=== PATIENT | male | born 1930 | race Caucasian/White ===

== ENCOUNTER 2018-05-24 08:43 | Inpatient (IN) | payer OTHER ==
[2018-05-24] MEDS ORDERED: ASPIRIN 81 MG CHEWABLE TABLETS PO ONE (08:55)
--- NOTE | 2018-05-24 08:59 | PDOC ---
History of Present Illness <Ciara Gtzsy - Last Filed: 05/24/18 10:52> - General History Source: Patient Exam Limitations: No Limitations - History of Present Illness Initial Comments: 05/24/18 09:01 Mr Hernandez is an 88 y/o male with a history of HTN, HLD, CVA, CAD s/p [place] s/p CABG and bilateral carotid endarterectomy presents to the ED due to recurrent falls, who presents to the ER via EMS due to chest pain. CP began at 8 Am, described as sharp, pressure, radiating to left arm, no associated jaw pain Pain was initial 04/09 but now it has improved. chest pain has actually been present for the past week. No shortness of breath. Of note, pt has also had diarrhea and nausea for the past week Has had 3-4 stools/day, watery, non bloody No abdominal pain, intermittent cramping PMH: HTN, HLD, CAD, PSH: CABG, CEA Card: Dr Sood, ECHO scheduled for next week Meds: ALL: NKDA Social: denies alcohol, drug, cigarette use FH: non contributory ROS: GENERAL/CONSTITUTIONAL: No: fever, chills, weakness, loss of appetite. HEAD, EYES, EARS, NOSE AND THROAT: No: change in vision, ear pain, discharge, sore throat, throat swelling. CARDIOVASCULAR: Yes: chest pain No: lightheadedness, palpitations, syncope RESPIRATORY: No: cough, shortness of breath, wheezing, hemoptysis, stridor. GASTROINTESTINAL: No: nausea, vomiting, diarrhea, abdominal cramping, rectal bleeding, constipation. GENITOURINARY: No: dysuria, hematuria, frequency, urgency, flank pain. MUSCULOSKELETAL: No: back pain, neck pain, joint pain, muscle swelling or pain SKIN AND BREASTS: No: lesions, pallor, rash or easy bruising. NEUROLOGIC: No: headache, vertigo, paresthesias, weakness ENDOCRINE: No: unexplained weight gain or loss HEMATOLOGIC/LYMPHATIC: No: anemia, easy bleeding, swelling nodes. PE: GENERAL: The patient is in no acute distress. HEAD: Normal EYES: PERRLA, EOMI, sclera anicteric, conjunctiva clear. ENT: Ears normal, nares patent, oropharynx clear without exudates. Moist mucous membranes. NECK: Normal range of motion, supple without lymphadenopathy, JVD LUNGS: Breath sounds equal, clear to auscultation bilaterally. No wheezes, and no crackles. HEART:Regular rate and rhythm, normal S1 and S2 without murmur, rub or gallop. ABDOMEN: Soft, nontender, normoactive bowel sounds. No guarding, no rebound. EXTREMITIES: Normal range of motion, no edema. NEUROLOGICAL: Cranial nerves II through XII grossly intact. Normal speech. No focal neurological deficits. MUSCULOSKELETAL: Back non-tender to palpation SKIN: Warm, Dry, normal turgor, no rashes or lesions noted. 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) - Suicide/Smoking/Psychosocial Hx Smoking History: Never smoked Have you smoked in the past 12 months: No Hx Alcohol Use: No Drug/Substance Use Hx: No Hx Substance Use Treatment: No <Susanne Snell - Last Filed: 05/24/18 11:22> - Past Medical History Allergies/Adverse Reactions: Allergies Allergy/AdvReac Type Severity Reaction Status Date / Time No Known Allergies Allergy Verified 11/14/14 10:31 Home Medications: Ambulatory Orders Atenolol [Tenormin -] 100 mg PO DAILY 08/24/14 Atorvastatin Ca [Lipitor] 80 mg PO HS 08/24/14 Ranitidine HCl [Zantac] 150 mg PO BID 08/24/14 Acetaminophen [Tylenol .Regular Strength -] 650 mg PO Q6H PRN #30 tablet Aspirin [ASA -] 81 mg PO DAILY tab.chew 11/20/14 Amlodipine Bes/Olmesartan Med [Amlodipine-Olmesartan 10-40 mg] 1 each PO DAILY 05/24/18 *Physical Exam - Vital Signs Last Vital Signs Temp Pulse Resp BP Pulse Ox 97.8 F 66 16 142/85 100 05/24/18 08:45 05/24/18 08:45 05/24/18 08:45 05/24/18 08:45 05/24/18 08:45 <Jo Gtz - Last Filed: 05/24/18 10:52> ED Treatment Course - LABORATORY CBC & Chemistry Diagram: 05/24/18 09:50 05/24/18 09:50 - ADDITIONAL ORDERS Additional order review: Laboratory Results 05/24/18 05/24/18 09:50 09:50 PT with INR 12.20 INR 1.08 Sodium 136 Potassium 4.4 Chloride 100 Carbon Dioxide 27 Anion Gap 9 BUN 34 H Creatinine 1.4 H Creat Clearance w eGFR 47.72 Random Glucose 138 H Calcium 9.1 Magnesium 2.1 Total Bilirubin 0.9 AST 29 ALT 26 Alkaline Phosphatase 105 Creatine Kinase 69 Troponin I < 0.02 B-Natriuretic Peptide 327.4 Total Protein 7.6 Albumin 3.5 Lipase 311 05/24/18 09:50 RBC 4.44 MCV 96.9 H MCHC 34.5 RDW 13.5 MPV 9.3 Neutrophils % 84.4 H D Lymphocytes % 6.9 L D Monocytes % 8.1 Eosinophils % 0.3 D Basophils % 0.3 - Medications Given in the ED: ED Medications Discontinued Medications Generic Name Dose Route Start Last Admin Trade Name Jose PRN Reason Stop Dose Admin Aspirin 162 mg 05/24/18 08:55 05/24/18 09:30 Asa - PO 05/24/18 08:56 162 mg ONCE ONE Administration Nitroglycerin 0.3 mg 05/24/18 09:37 05/24/18 09:25 Nitrostat - SL 05/24/18 09:38 0.3 mg ONCE ONE Administration <Jo Gtz - Last Filed: 05/24/18 10:52> - LABORATORY CBC & Chemistry Diagram: 05/24/18 09:50 05/24/18 09:50 - RADIOLOGY Radiology Studies Ordered: Category Date Time Status CHEST X-RAY PORTABLE* [RAD] Stat Radiology 05/24/18 08:55 Ordered <Susanne Snell - Last Filed: 05/24/18 11:22> Medical Decision Making - Medical Decision Making <Jo Gtz - Last Filed: 05/24/18 10:52> - Medical Decision Making 05/24/18 09:10 Differential includes cardiac ischemia, pe, asthma exacerbation, pneumonia, pneumothorax, pleural effusion, costochondritis, pericarditis, GERD. EKG: Twelve-lead EKG was performed and reviewed by me. There is normal sinus rhythm with a rate of 59 bpm. The axis is normal. The intervals are normal - pr:120ms, QRS:96ms, QTc: 409ms. There are no ST elevations or depressions. T wave inversion III, flattening, aVF 05/24/18 09:26 CXR: nml 05/24/18 09:47 Pt continues to have chest pain now, unchanged Given Aspirin Given SLN given Zofran and Pepcid Will re assess for pain relief 05/24/18 10:22 Laboratory Tests 05/24/18 09:50 WBC 12.4 H Hgb 14.9 Hct 43.0 Plt Count 270 D Neutrophils % 84.4 H D Lymphocytes % 6.9 L D 05/24/18 10:45 Laboratory Tests 09/01/17 05/24/18 08:35 09:50 Sodium 141 136 Potassium 4.3 4.4 Chloride 107 100 Anion Gap 5 L 9 BUN 21 H 34 H Creatinine 1.3 1.4 H Random Glucose 96 138 H Creatine Kinase 69 Troponin I < 0.02 B-Natriuretic Peptide 327.4 Lipase 311 05/24/18 11:[address] Roldan He agrees with admission, requests GI consultation Case reviewed with Dr Jones He will see this patient in consultation Pt is now chest pain free <Susanne Snell - Last Filed: 05/24/18 11:22> *DC/Admit/Observation/Transfer <Jo Gtz - Last Filed: 05/24/18 10:52> - Discharge Dispostion Decision to Admit order: Yes <Susanne Snell - Last Filed: 05/24/18 11:22> Diagnosis at time of Disposition: Chest pain Qualifiers: Chest pain type: unspecified Qualified Code(s): R07.9 - Chest pain, unspecified Diarrhea Qualifiers: Diarrhea type: unspecified type Qualified Code(s): R19.7 - Diarrhea, unspecified - Discharge Dispostion Condition at time of disposition: Stable - Referrals Referrals: Francisco Roldan MD [Primary Care Provider] - - Patient Instructions - Post Discharge Activity
[2018-05-24] MEDS ORDERED: SODIUM CHLORIDE 1,000 ML IV STA (09:36)
[2018-05-24] MEDS ORDERED: ONDANSETRON 4 MG/2 ML VIAL IVPUSH ONE (09:37)
[2018-05-24] MEDS ORDERED: FAMOTIDINE 20 MG/50 ML IVPB 20 MG/50 ML MG IVPB ONE ×2 (09:37→10:15)
[2018-05-24] MEDS ORDERED: NITROGLYCERIN SUBLINGUAL 1/200 0.3 MG BTL SL ONE (09:37)
[2018-05-24] MEDS ORDERED: NITROGLYCERIN SUBLINGUAL 1/150 0.4 MG TAB ONE ×2 (09:42→10:15)
[2018-05-24] MEDS ORDERED: ACETAMINOPHEN 1000 MG/100 ML VIAL (NON FORMULARY) IVPB ONE (10:05)
[2018-05-24] MEDS ORDERED: NITROGLYCERIN SUBLINGUAL 1/150 0.4 MG TAB SL ONE (10:05)
[2018-05-24] MEDS ORDERED: ACETAMINOPHEN INJECTION 100 ML IVPB ONE (10:15)
[2018-05-24 10:16] LABS: BASO % 0.3 % (0-2.0); EOS % 0.3 % (0-4.5); HEMOGLOBIN 14.9 GM/dL (11.7-16.9); LYMPH % 6.9 % (8-40); MCH 33.5 pg (25.7-33.7); MCHC 34.5 g/dl (32.0-35.9); MEAN CELL VOLUME 96.9 fl (80-96); MEAN PLT VOLUME 9.3 fl (7.5-11.1); MONO % 8.1 % (3.8-10.2); NEUT % 84.4 % (42.8-82.8); PLATELET COUNT 270 K/MM3 (134-434); RBC 4.44 M/mm3 (4.00-5.60); RDW 13.5 % (11.9-15.9); WHITE BLOOD COUNT 12.4 K/mm3 (4.0-10.0)
[2018-05-24] MEDS ORDERED: ONDANSETRON 4 MG/2 ML VIAL ONE (10:16)
[2018-05-24 10:35] LABS: INR 1.08 (0.83-1.09); PROTHROMBIN TIME (PATIENT) 12.2 SEC (9.7-13.0)
[2018-05-24 10:44] LABS: ALBUMIN 3.5 g/dl (3.4-5.0); ALK PHOS 105 U/L (45-117); ANION GAP 9 MMOL/L (8-16); BILIRUBIN,TOTAL 0.9 mg/dL (0.2-1); BLOOD UREA NITROGEN 34 mg/dL (7-18); CALCIUM 9.1 mg/dL (8.5-10.1); CHLORIDE 100 mmol/L (98-107); CO2 27 mmol/L (21-32); CREATININE 1.4 mg/dL (0.55-1.3); GLUCOSE,RANDOM 138 mg/dL (74-106); LIPASE 311 U/L (73-393); MAGNESIUM 2.1 mg/dL (1.8-2.4); N-TERMINAL BNP 327.4 pg/ml (5-450); POTASSIUM 4.4 mmol/L (3.5-5.1); SGOT/AST 29 U/L (15-37); SGPT/ALT 26 U/L (13-61); SODIUM 136 mmol/L (136-145); TOT PROT 7.6 g/dl (6.4-8.2)
[2018-05-24] MEDS ORDERED: ASPIRIN 81 MG CHEWABLE TABLETS ONE (11:15)
--- NOTE | 2018-05-24 12:17 | EKG ---
Test Reason : Blood Pressure : / mmHG Vent. Rate : 059 BPM Atrial Rate : 059 BPM P-R Int : 120 ms QRS Dur : 096 ms QT Int : 414 ms P-R-T Axes : 017 050 020 degrees QTc Int : 409 ms SINUS BRADYCARDIA POSSIBLE LEFT ATRIAL ENLARGEMENT BORDERLINE ECG WHEN COMPARED WITH ECG OF 24-AUG-2014 09:42, T WAVE INVERSION NOW EVIDENT IN ANTERIOR LEADS Confirmed by PADDY DE LOS SANTOS MD ([id number]) on 05/24/2018 12:16:54 PM Referred By: Confirmed By:PADDY DE LOS SANTOS MD
--- NOTE | 2018-05-24 13:21 | CON.CARD ---
Consult Consult Specialty:: Cardiology Referred by:: Emergency Medicine Reason for Consultation:: Chest pain - History of Present Illness Chief Complaint: Chest pain History of Present Illness: Mr Hernandez is an 88 y/o male with a history of HTN, HLD, CVA, CAD s/p [place] s/p CABG, diastolic dysfunction and bilateral carotid endarterectomy, CKD last seen by dr. Varela 04/22/2018 presents to the ED for chest pain. CP began at 8 Am , described as sharp, pressure, radiating to left arm, no associated jaw pain Pain was initial 04/09 but now it has improved. Chest pain has actually been present for the past week. No shortness of breath, reports odynophagia with liquids and solids, diarrhea, non bloody, chest pain resolved with SL NTG. PMH: HTN, HLD, CAD, PSH: CABG, CEA Card: Dr Sood, ECHO scheduled for next week Meds: ALL: NKDA Social: denies alcohol, drug, cigarette use FH: non contributory - History Source History Provided By: Patient Limitations to Obtaining History: No Limitations - Past Medical History Cardio/Vascular: Yes: CAD, HTN, Hyperlipdemia Infectious Disease: Yes: Herpes Zoster - Past Surgical History Past Surgical History: Yes: CABG, Carotid Endarterectomy - Alcohol/Substance Use Hx Alcohol Use: No - Smoking History Smoking history: Never smoked Have you smoked in the past 12 months: No - Social History Usual Living Arrangement: Alone ADL: Independent History of Recent Travel: No Home Medications - Allergies Allergies/Adverse Reactions: Allergies Allergy/AdvReac Type Severity Reaction Status Date / Time No Known Allergies Allergy Verified 11/14/14 10:31 - Home Medications Home Medications: Ambulatory Orders Atenolol [Tenormin -] 100 mg PO DAILY 08/24/14 Atorvastatin Ca [Lipitor] 80 mg PO HS 08/24/14 Ranitidine HCl [Zantac] 150 mg PO BID 08/24/14 Acetaminophen [Tylenol .Regular Strength -] 650 mg PO Q6H PRN #30 tablet Aspirin [ASA -] 81 mg PO DAILY tab.chew 11/20/14 Amlodipine Bes/Olmesartan Med [Amlodipine-Olmesartan 10-40 mg] 1 each PO DAILY 05/24/18 Review of Systems - Review of Systems Constitutional: reports: Weakness Eyes: reports: No Symptoms HENT: reports: No Symptoms Neck: reports: No Symptoms Cardiovascular: reports: Chest Pain Respiratory: reports: No Symptoms Gastrointestinal: reports: Dysphagia Genitourinary: reports: No Symptoms Musculoskeletal: reports: No Symptoms Neurological: reports: No Symptoms Endocrine: reports: No Symptoms Hematology/Lymphatic: reports: No Symptoms Psychiatric: reports: No Symptoms Vital Signs: Vital Signs Temperature 97.8 F 05/24/18 08:45 Pulse Rate 70 05/24/18 10:15 Respiratory Rate 16 05/24/18 10:15 Blood Pressure 142/78 05/24/18 10:15 O2 Sat by Pulse Oximetry (%) 95 05/24/18 10:15 Constitutional: Yes: No Distress, Calm, Thin Neck: Yes: Supple Respiratory: Yes: Regular, CTA Bilaterally Gastrointestinal: Yes: Normal Bowel Sounds, Soft Cardiovascular: Yes: Regular Rate and Rhythm JVD: No Carotid Bruit: No Heart Sounds: Yes: S1, S2 Murmur: Yes: Systolic Murmur, Grade 1 Edema: No - Other Data Labs, Other Data: CBC, BMP 05/24/18 09:50 05/24/18 09:50 INR, PTT INR 1.08 (0.83-1.09) 05/24/18 09:50 Troponin, BNP 05/24/18 09:50 Troponin I < 0.02 B-Natriuretic Peptide 327.4 Troponin, BNP 05/24/18 09:50 Troponin I < 0.02 B-Natriuretic Peptide 327.4 NSR nonspec T wave changes Imaging - Results Chest X-ray: Report Reviewed (NAD) Problem List - Problems (1) Atypical chest pain Code(s): R07.89 - OTHER CHEST PAIN (2) S/P CABG (coronary artery bypass graft) Code(s): Z95.1 - PRESENCE OF AORTOCORONARY BYPASS GRAFT (3) History of coronary artery stent placement Code(s): Z95.5 - PRESENCE OF CORONARY ANGIOPLASTY IMPLANT AND GRAFT (4) Coronary artery disease Code(s): I25.10 - ATHSCL HEART DISEASE OF [place] CORONARY ARTERY W/O ANG PCTRS Qualifiers: Coronary Disease-Associated Artery/Lesion type: [place] artery [place] vs. transplanted heart: [place] heart Associated angina: without angina Qualified Code(s): I25.10 - Atherosclerotic heart disease of [place] coronary artery without angina pectoris (5) Hyperlipidemia Code(s): E78.5 - HYPERLIPIDEMIA, UNSPECIFIED Qualifiers: Hyperlipidemia type: pure hypercholesterolemia Qualified Code(s): E78.00 - Pure hypercholesterolemia, unspecified; E78.0 - Pure hypercholesterolemia (6) Hypertensive cardiomyopathy Code(s): I11.9 - HYPERTENSIVE HEART DISEASE WITHOUT HEART FAILURE; I43 - CARDIOMYOPATHY IN DISEASES CLASSIFIED ELSEWHERE Qualifiers: Heart failure presence: without heart failure Qualified Code(s): I11.9 - Hypertensive heart disease without heart failure; I43 - Cardiomyopathy in diseases classified elsewhere (7) Diastolic dysfunction without heart failure Code(s): I51.89 - OTHER ILL-DEFINED HEART DISEASES (8) Odynophagia Code(s): R13.10 - DYSPHAGIA, UNSPECIFIED Assessment/Plan Echo: January 29, 2017 Normal LV size and fxn, mild LAE 4.7 cm, mild-mod MR, mod TR RVSP 38 mmHg P-Myoview: November 21, 2015 No ischemia, LVEF 87% 1. Atypical chest pain with odynophagia, r/o esophageal spasm, achalasia, stricture 2. CAD s/p PCI, CABG, angina pectoris 3. Diastolic dysfunction 4. HTN/HCVD 5. Type 2 DM 6. Hyperlipidemia 7. Cerebeovascular disease 8. Carotid stenosis s/p CEA P:1. Ruling out for [place], barium swallow, GI evaluation 2. Continue Atenolol 100 qd, Lipitor 80 qhs, Zantac 150 bid, ASA 81 qd, Lotrel 10/40 qd 3. Thank you for consultative opportunity
--- NOTE | 2018-05-24 21:06 | HP ---
Admitting History and Physical - Primary Care Physician PCP: Francisco Roldan - Admission Chief Complaint: CP History of Present Illness: Pt with significant Hx/o CAD, [place], CABG, Carotid disease c/o on and off CP for 3 days,worse this AM, radiating to the left arm, not associated with SOB, palpitations, dizziness. Pt also c/o diarrhea for on week, no blood. History Source: Patient - Past Medical History Cardiovascular: Yes: CAD, CHF, HTN, Hyperlipdemia, [place] Renal/: Yes: Renal Failure Infectious Disease: Yes: Herpes Zoster - Past Surgical History Past Surgical History: Yes: CABG, Carotid Endarterectomy - Smoking History Smoking history: Never smoked Have you smoked in the past 12 months: No - Alcohol/Substance Use Hx Alcohol Use: No - Social History ADL: Independent History of Recent Travel: No Home Medications - Allergies Allergies/Adverse Reactions: Allergies Allergy/AdvReac Type Severity Reaction Status Date / Time No Known Allergies Allergy Verified 11/14/14 10:31 - Home Medications Home Medications: Ambulatory Orders Atenolol [Tenormin -] 100 mg PO DAILY 08/24/14 Atorvastatin Ca [Lipitor] 80 mg PO HS 08/24/14 Ranitidine HCl [Zantac] 150 mg PO BID 08/24/14 Acetaminophen [Tylenol .Regular Strength -] 650 mg PO Q6H PRN #30 tablet Aspirin [ASA -] 81 mg PO DAILY tab.chew 11/20/14 Amlodipine Bes/Olmesartan Med [Amlodipine-Olmesartan 10-40 mg] 1 each PO DAILY 05/24/18 Review of Systems - Review of Systems Constitutional: denies: Chills, Fever Eyes: denies: Double Vision, Recent Change in Vision HENT: denies: Difficult Swallowing, Ear Discharge, Ear Pain, Epistaxis, Nasal Congestion, Throat Pain Neck: denies: Pain on Movement, Stiffness Cardiovascular: denies: Chest Pain (now), Edema, Palpitations Respiratory: denies: Cough, SOB, Wheezing Gastrointestinal: reports: Abdominal Pain. denies: Nausea, Vomiting Genitourinary: denies: Burning, Discharge Musculoskeletal: denies: Back Pain, Extremity Pain Integumentary: denies: Bruising, Eczema, Rash Neurological: denies: Change in LOC, Change in Speech, Confusion, Dizziness, Numbness, Tremors, Weakness Endocrine: denies: Excessive Sweating, Intolerance to Cold Hematology/Lymphatic: denies: Easily Bruised, Excessive Bleeding Psychiatric: denies: Anxiety, Depression Physical Examination Vital Signs: Vital Signs Temperature 97.8 F 05/24/18 08:45 Pulse Rate 70 05/24/18 10:15 Respiratory Rate 16 05/24/18 10:15 Blood Pressure 142/78 05/24/18 10:15 O2 Sat by Pulse Oximetry (%) 95 05/24/18 10:15 Constitutional: Yes: No Distress, Calm Eyes: Yes: Conjunctiva Clear, PERRL HENT: No: Epistaxis, Pharyngeal Erythema, Rhinnorhea Neck: Yes: Trachea Midline. No: Lymphadenopathy Cardiovascular: Yes: Regular Rate and Rhythm, S1, S2 Respiratory: Yes: Regular, CTA Bilaterally. No: Rales Gastrointestinal: Yes: Normal Bowel Sounds, Soft. No: Tenderness, Tenderness, Epigastrium, Tenderness, Rebound ...Rectal Exam: Yes: Deferred Musculoskeletal: No: Back Pain, Joint Stiffness, Joint Swelling Extremities: Yes: Amputation (right hand fingers) Edema: No Integumentary: No: Bruising, Rash Neurological: Yes: Alert, Oriented, Other (motor and sensory exxamination is symmetric in UE/ LE/ face) Psychiatric: Yes: Alert, Oriented Labs: CBC, BMP 05/24/18 09:50 05/24/18 09:50 Imaging - Results Chest X-ray: Report Reviewed EKG: Image Reviewed Problem List - Problems (1) Chest pain Code(s): R07.9 - CHEST PAIN, UNSPECIFIED Qualifiers: Chest pain type: unspecified Qualified Code(s): R07.9 - Chest pain, unspecified (2) Diarrhea Code(s): R19.7 - DIARRHEA, UNSPECIFIED Qualifiers: Diarrhea type: unspecified type Qualified Code(s): R19.7 - Diarrhea, unspecified (3) Coronary artery disease Code(s): I25.10 - ATHSCL HEART DISEASE OF [place] CORONARY ARTERY W/O ANG PCTRS Qualifiers: Coronary Disease-Associated Artery/Lesion type: [place] artery [place] vs. transplanted heart: [place] heart Associated angina: without angina Qualified Code(s): I25.10 - Atherosclerotic heart disease of [place] coronary artery without angina pectoris (4) S/P CABG (coronary artery bypass graft) Code(s): Z95.1 - PRESENCE OF AORTOCORONARY BYPASS GRAFT (5) Diastolic dysfunction without heart failure Code(s): I51.89 - OTHER ILL-DEFINED HEART DISEASES (6) Hyperlipidemia Code(s): E78.5 - HYPERLIPIDEMIA, UNSPECIFIED Qualifiers: Hyperlipidemia type: pure hypercholesterolemia Qualified Code(s): E78.00 - Pure hypercholesterolemia, unspecified; E78.0 - Pure hypercholesterolemia (7) Shingles Code(s): B02.9 - ZOSTER WITHOUT COMPLICATIONS (8) Weakness generalized Code(s): R53.1 - WEAKNESS (9) Leukocytosis Code(s): D72.829 - ELEVATED WHITE BLOOD CELL COUNT, UNSPECIFIED Assessment/Plan Admit to monitor bed Serial CE Cardio Consult GI consult To f/u WBC AM labs
[2018-05-24] MEDS: ATORVASTATIN CA 80 MG TABLET (FP) PO SCH (23:00)
[2018-05-24] MEDS: RANITIDINE HCL 150 MG TABLET (FP) PO SCH (23:00)
[2018-05-24] MEDS ORDERED: RANITIDINE HCL 150 MG TABLET (FP) ONE (23:05)
[2018-05-24] MEDS ORDERED: ATORVASTATIN CA 80 MG TABLET (FP) ONE (23:06)
[2018-05-25 04:49] VITALS: BMI 18.1
[2018-05-25 06:56] LABS: HEMATOCRIT 40.5 % (35.4-49); MCH 33.2 pg (25.7-33.7); MCHC 34.6 g/dl (32.0-35.9); MEAN CELL VOLUME 96.1 fl (80-96); MEAN PLT VOLUME 9.4 fl (7.5-11.1); PLATELET COUNT 235 K/MM3 (134-434); RBC 4.22 M/mm3 (4.00-5.60); RDW 13.4 % (11.9-15.9)
[2018-05-25 07:23] LABS: ALBUMIN 3.2 g/dl (3.4-5.0); ALK PHOS 95 U/L (45-117); ANION GAP 8 MMOL/L (8-16); BILIRUBIN,TOTAL 0.8 mg/dL (0.2-1); BLOOD UREA NITROGEN 29 mg/dL (7-18); CALCIUM 8.6 mg/dL (8.5-10.1); CHLORIDE 102 mmol/L (98-107); CO2 24 mmol/L (21-32); CREATININE 1.2 mg/dL (0.55-1.3); GLUCOSE,RANDOM 94 mg/dL (74-106); MAGNESIUM 1.9 mg/dL (1.8-2.4); POTASSIUM 4.2 mmol/L (3.5-5.1); SGOT/AST 28 U/L (15-37); SGPT/ALT 23 U/L (13-61); SODIUM 134 mmol/L (136-145); TOT PROT 6.6 g/dl (6.4-8.2)
[2018-05-25] MEDS ORDERED: PT OWN MED DRAWER 7, Y5N ONE ×2 (08:41→09:18)
[2018-05-25] MEDS: amLODIPine BESYLATE 10 MG TABLET (FP) PO SCH (09:20)
[2018-05-25] MEDS: LISINOPRIL 20 MG TABLET (FP) PO SCH (09:20)
[2018-05-25] MEDS: ATENOLOL 50 MG TABLET (FP) PO SCH (09:20)
[2018-05-25] MEDS: ASPIRIN 81 MG CHEWABLE TABLETS PO SCH (09:20)
[2018-05-25] MEDS: RANITIDINE HCL 150 MG TABLET (FP) PO SCH (09:20)
[2018-05-25] MEDS ORDERED: INSULIN (LEVEMIR) 100 UNITS/ML UNITS SQ ONE (09:40)
[2018-05-25 15:36] LABS: URINE APPEARANCE SLCLOUDY; URINE BILIRUBIN NEGATIVE (<2.0 mg/dL); URINE COLOR YELLOW; URINE GLUCOSE (UA) NEGATIVE (NEGATIVE); URINE KETONE NEGATIVE (NEGATIVE); URINE LEUK ESTERASE NEGATIVE (NEGATIVE); URINE NITRITE NEGATIVE (NEGATIVE); URINE PROTEIN NEGATIVE (NEGATIVE); URINE UROBILINOGEN NEGATIVE mg/dL (0.2-1.0)
--- NOTE | 2018-05-25 18:06 | CONSULT ---
Consult - text type - Consultation Consultation Note: Neurology History of Present Illness Mr Hernandez is an 88 y/o male with a history of HTN, HLD, CVA, CAD s/p [place] s/p CABG and bilateral carotid endarterectomy presents to the ED due to recurrent falls, who presents to the ER via EMS due to chest pain. CP began at 8 Am on morning of admission, described as sharp, pressure, radiating to left arm, no associated jaw pain but has improved. I was consulted regarding confusion. During my evaluation, is awake, alert, cooperative, knows he's in the hospital and calls it [facility]. Knows name of President but had difficulty with date, believed it to be October 2016. Completed CT head which did not show any acute abnormalities. Discussed with primary, Dr. Roldan, not seen in his office in a few years. Baseline is some mild cognitive impairment but otherwise functional. States he's had poor PO intake and mostly consuming soft foods and fruits leading to diahrrea, per patient. Of note had slight white count of 12 but not but on Abx. UA to be sent, CXR negative. 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) - Suicide/Smoking/Psychosocial Hx Smoking History: Never smoked Have you smoked in the past 12 months: No Hx Alcohol Use: No Drug/Substance Use Hx: No Hx Substance Use Treatment: No - Past Medical History Allergies/Adverse Reactions: Allergies Allergy/AdvReac Type Severity Reaction Status Date / Time No Known Allergies Allergy Verified 11/14/14 10:31 Home Medications: Ambulatory Orders Atenolol [Tenormin -] 100 mg PO DAILY 08/24/14 Atorvastatin Ca [Lipitor] 80 mg PO HS 08/24/14 Ranitidine HCl [Zantac] 150 mg PO BID 08/24/14 Acetaminophen [Tylenol .Regular Strength -] 650 mg PO Q6H PRN #30 tablet Aspirin [ASA -] 81 mg PO DAILY tab.chew 11/20/14 Amlodipine Bes/Olmesartan Med [Amlodipine-Olmesartan 10-40 mg] 1 each PO DAILY 05/24/18 ROS: GENERAL/CONSTITUTIONAL: No: fever, chills, weakness, loss of appetite. HEAD, EYES, EARS, NOSE AND THROAT: No: change in vision, ear pain, discharge, sore throat, throat swelling. CARDIOVASCULAR: Yes: chest pain No: lightheadedness, palpitations, syncope RESPIRATORY: No: cough, shortness of breath, wheezing, hemoptysis, stridor. GASTROINTESTINAL: No: nausea, vomiting, diarrhea, abdominal cramping, rectal bleeding, constipation. GENITOURINARY: No: dysuria, hematuria, frequency, urgency, flank pain. MUSCULOSKELETAL: No: back pain, neck pain, joint pain, muscle swelling or pain SKIN AND BREASTS: No: lesions, pallor, rash or easy bruising. NEUROLOGIC: No: headache, vertigo, paresthesias, weakness ENDOCRINE: No: unexplained weight gain or loss HEMATOLOGIC/LYMPHATIC: No: anemia, easy bleeding, swelling nodes. *Physical Exam Vital Signs Period Temp Pulse Resp BP Sys/Tatum Pulse Ox Last 24 Hr 97.5 F-98.3 F 71-82 18-20 117-149/58-89 95-97 Gen: Awake, alert, responds to questions, knows place Card: RRR, nml S1,S2 Resp: Normal symmetric effort, lungs clear to auscultation Abdomen: Soft, nontender, bowel sounds active Musculoskeletal: Adequate range of motion without significant deformity Head atraumatic and normocephalic CN: PERRL, EOMI intact, no apparent facial droop, no abnormalities in facial sensation, palate elevates, uvula and tongue midline Motor: Full strength to confrontation in upper and lower extermities proximally and distally. Age related atrophy Sensory: Intact to Temperature, light touch, and pinprick in all extremities Coordination: Intact on [id number] testing Gait: Deferred Laboratory Results 05/24/18 05/24/18 09:50 09:50 PT with INR 12.20 INR 1.08 Sodium 136 Potassium 4.4 Chloride 100 Carbon Dioxide 27 Anion Gap 9 BUN 34 H Creatinine 1.4 H Creat Clearance w eGFR 47.72 Random Glucose 138 H Calcium 9.1 Magnesium 2.1 Total Bilirubin 0.9 AST 29 ALT 26 Alkaline Phosphatase 105 Creatine Kinase 69 Troponin I < 0.02 B-Natriuretic Peptide 327.4 Total Protein 7.6 Albumin 3.5 Lipase 311 05/24/18 09:50 RBC 4.44 MCV 96.9 H MCHC 34.5 RDW 13.5 MPV 9.3 Neutrophils % 84.4 H D Lymphocytes % 6.9 L D Monocytes % 8.1 Eosinophils % 0.3 D Basophils % 0.3 Medical Decision Making 88 y/o male with a history of HTN, HLD, CVA, CAD s/p [place] s/p CABG and bilateral carotid endarterectomy presents to the ED due to recurrent falls, who presents to the ER via EMS due to chest pain. CP began at 8 Am on morning of admission, described as sharp, pressure, radiating to left arm, no associated jaw pain but has improved. I was consulted regarding confusion. During my evaluation, is awake, alert, cooperative, knows he's in the hospital and calls it [facility]. Knows name of President but had difficulty with date, believed it to be October 2016. Completed CT head which did not show any acute abnormalities. Discussed with primary, Dr. Roldan, not seen in his office in a few years. Baseline is some mild cognitive impairment but otherwise functional. States he' s had poor PO intake and mostly consuming soft foods and fruits leading to diahrrea, per patient. Of note had slight white count of 12 but not but on Abx. UA to be sent, CXR negative. Hold off on further imaging for now. Will check B12 , Folate. Check for infectious etiology, gentle hydration may be of benefit. Increased PO/IV hydration. Reorientation whenever able.
--- NOTE | 2018-05-25 18:30 | PN ---
Progress Note, Physician History of Present Illness: Pt w/o CP now. Pt w/o SOB, palpitations, dizziness. Pt w/o diarrhea today. Pt w/o nausea, vomiting. Pt states that has difficulty swallowing, sometimes coughs when swallows, other times it hurts. Pt is trying to get out of bed on his own. I made pt's nurse aware. Per pt's nurse pt seems anxious at times. Pt's reported to the nurse that pt is somewhat confused. - Current Medication List Current Medications: Active Medications Amlodipine Besylate (Norvasc -) 10 mg PO DAILY [facility] Last Admin: 05/25/18 09:20 Dose: 10 mg Aspirin (Asa -) 81 mg PO DAILY [facility] Last Admin: 05/25/18 09:20 Dose: 81 mg Atenolol (Tenormin -) 100 mg PO DAILY [facility] Last Admin: 05/25/18 09:20 Dose: 100 mg Atorvastatin Calcium (Lipitor -) 80 mg PO HS [facility] Last Admin: 05/24/18 23:00 Dose: 80 mg Lisinopril (Prinivil) 40 mg PO DAILY [facility] Last Admin: 05/25/18 09:20 Dose: 40 mg Ranitidine HCl (Zantac -) 150 mg PO BID [facility] Last Admin: 05/25/18 09:20 Dose: 150 mg - Objective Vital Signs: Vital Signs Temperature 98.2 F 05/25/18 14:00 Pulse Rate 74 05/25/18 14:00 Respiratory Rate 18 05/25/18 14:00 Blood Pressure 117/58 L 05/25/18 14:00 O2 Sat by Pulse Oximetry (%) 97 05/25/18 10:00 Constitutional: Yes: No Distress, Calm (now) Cardiovascular: Yes: Regular Rate and Rhythm, S1, S2 Respiratory: Yes: Regular, CTA Bilaterally. No: Rales Gastrointestinal: Yes: Normal Bowel Sounds, Soft. No: Tenderness Edema: No Neurological: Yes: Alert, Oriented (to person, place) Labs: CBC, BMP 05/25/18 05:30 05/25/18 05:30 INR, PTT INR 1.08 (0.83-1.09) 05/24/18 09:50 Problem List - Problems (1) Chest pain Code(s): R07.9 - CHEST PAIN, UNSPECIFIED Qualifiers: Chest pain type: unspecified Qualified Code(s): R07.9 - Chest pain, unspecified (2) Diarrhea Code(s): R19.7 - DIARRHEA, UNSPECIFIED Qualifiers: Diarrhea type: unspecified type Qualified Code(s): R19.7 - Diarrhea, unspecified (3) Coronary artery disease Code(s): I25.10 - ATHSCL HEART DISEASE OF [place] CORONARY ARTERY W/O ANG PCTRS Qualifiers: Coronary Disease-Associated Artery/Lesion type: [place] artery [place] vs. transplanted heart: [place] heart Associated angina: without angina Qualified Code(s): I25.10 - Atherosclerotic heart disease of [place] coronary artery without angina pectoris (4) S/P CABG (coronary artery bypass graft) Code(s): Z95.1 - PRESENCE OF AORTOCORONARY BYPASS GRAFT (5) Diastolic dysfunction without heart failure Code(s): I51.89 - OTHER ILL-DEFINED HEART DISEASES (6) Hyperlipidemia Code(s): E78.5 - HYPERLIPIDEMIA, UNSPECIFIED Qualifiers: Hyperlipidemia type: pure hypercholesterolemia Qualified Code(s): E78.00 - Pure hypercholesterolemia, unspecified; E78.0 - Pure hypercholesterolemia (7) Shingles Code(s): B02.9 - ZOSTER WITHOUT COMPLICATIONS (8) Weakness generalized Code(s): R53.1 - WEAKNESS (9) Leukocytosis Code(s): D72.829 - ELEVATED WHITE BLOOD CELL COUNT, UNSPECIFIED (10) Anxiety Code(s): F41.9 - ANXIETY DISORDER, UNSPECIFIED (11) Confusion Code(s): R41.0 - DISORIENTATION, UNSPECIFIED (12) Swallowing difficulty Code(s): R13.10 - DYSPHAGIA, UNSPECIFIED Assessment/Plan Admitted to monitor bed Serial CE- to monitor Cardio Consult appreciated. GI consult Swallow evaluation. I ordered Head CT scan to r/o brain pathology. Neuro consult; case was d/w Dr. Zhou, Head CT scan report was reviewed with Dr. Zhou; to monitor pt clinically. Start slow rate IV hydrations- per pt's nurse he removes repeatedly IV line; to encourage PO hydration. Consider Xanax PRN for anxiety. I spoke with pt about risk of fall and the need to call for help every time he is trying to go to the bathroom. I spoke with his nurse about pt's risk of fall; pt to be moved closer to nursing station, to have bed alarm. Consider vest for safety. Time spent for managing pt's care: over 40 minutes. AM labs
--- NOTE | 2018-05-25 19:51 | CON.GI ---
Consult Consult Specialty:: Gastroenterology Referred by:: Dr. Roldan Reason for Consultation:: Diarrhea - History of Present Illness Chief Complaint: Chest pain this AM History of Present Illness: 88M is admitted for evaluation of chest pain. He suffers with chronic heartburn but tells me that his pain was different. He denies dysphagia or early satiety. He describes having diarrhea for several months. It can range from 1-4 bowels movements daily. The stool consistency ranges form stringy thins stools to loose and watery. He believes it may be because he gave up eating fruit and vegetables several months ago because they are either too expensive or too difficult to prepare. He cooks for himself and his . He denies rectal bleeding but senses weight loss that he can't quantitate. He last had a colonoscopy with me in 2009 when a tubular adenoma was removed from the splenic flexure. He had an adenoma removed in 2005 as well when he also was found to have a duodenal ulcer. He takes Ranitidine chronically for this and his acid reflux. I advised followup in 2014 when I last saw him on 10/27/11 but he did not return as he tells me he has gotten too old and weak to have any further endoscopies. He denies a FH of GI cancer. 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 - Past Surgical History Past Surgical History: Yes: Appendectomy, CABG (quadruple 10/05), Carotid Endarterectomy (bilateral), Cataract Removal (bilateral), Colonoscopy, Hernia Repair ([facility]), Upper Endoscopy Additional Surgical History: excision benign cyst right testicle - Alcohol/Substance Use Hx Alcohol Use: Yes (quit 40 years ago) - Smoking History Smoking history: Never smoked Have you smoked in the past 12 months: No - Social History Usual Living Arrangement: With Spouse ADL: Independent 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 Place of : [facility] History of Recent Travel: No Home Medications - Allergies Allergies/Adverse Reactions: Allergies Allergy/AdvReac Type Severity Reaction Status Date / Time No Known Allergies Allergy Verified 11/14/14 10:31 - Home Medications Home Medications: Ambulatory Orders Atenolol [Tenormin -] 100 mg PO DAILY 08/24/14 Atorvastatin Ca [Lipitor] 80 mg PO HS 08/24/14 Ranitidine HCl [Zantac] 150 mg PO BID 08/24/14 Acetaminophen [Tylenol .Regular Strength -] 650 mg PO Q6H PRN #30 tablet Aspirin [ASA -] 81 mg PO DAILY tab.chew 11/20/14 Amlodipine Bes/Olmesartan Med [Amlodipine-Olmesartan 10-40 mg] 1 each PO DAILY 05/24/18 Family Disease History - Family Disease History Family Disease History: Heart Disease: Father ( [place] age 58), Other: Mother ( 80 thoracic aneurysm ), Son ( of congenital abnormality), Daughter (5- healthy ) Review of Systems - Review of Systems Constitutional: reports: Loss of Appetite, Unintentional Wgt. Loss, Weakness Eyes: reports: No Symptoms HENT: reports: No Symptoms Neck: reports: No Symptoms Cardiovascular: reports: Chest Pain Respiratory: reports: Exercise Intolerance Gastrointestinal: reports: Diarrhea Musculoskeletal: reports: Joint Pain Physical Exam-GI Vital Signs: Vital Signs Temperature 98.2 F 05/25/18 14:00 Pulse Rate 74 05/25/18 14:00 Respiratory Rate 18 05/25/18 14:00 Blood Pressure 117/58 L 05/25/18 14:00 O2 Sat by Pulse Oximetry (%) 97 05/25/18 10:00 CBC,CMP WBC 11.0 K/mm3 (4.0-10.0) H 05/25/18 05:30 RBC 4.22 M/mm3 (4.00-5.60) 05/25/18 05:30 Hgb 14.0 GM/dL (11.7-16.9) 05/25/18 05:30 Hct 40.5 % (35.4-49) 05/25/18 05:30 MCV 96.1 fl (80-96) H 05/25/18 05:30 MCH 33.2 pg (25.7-33.7) 05/25/18 05:30 MCHC 34.6 g/dl (32.0-35.9) 05/25/18 05:30 RDW 13.4 % (11.9-15.9) 05/25/18 05:30 Plt Count 235 K/MM3 (134-434) 05/25/18 05:30 MPV 9.4 fl (7.5-11.1) 05/25/18 05:30 Absolute Neuts (auto) 10.5 K/mm3 (1.5-8.0) H 05/24/18 09:50 Neutrophils % 84.4 % (42.8-82.8) H D 05/24/18 09:50 Lymphocytes % 6.9 % (8-40) L D 05/24/18 09:50 Monocytes % 8.1 % (3.8-10.2) 05/24/18 09:50 Eosinophils % 0.3 % (0-4.5) D 05/24/18 09:50 Basophils % 0.3 % (0-2.0) 05/24/18 09:50 Nucleated RBC % 0 % (0-0) 05/24/18 09:50 Sodium 134 mmol/L (136-145) L 05/25/18 05:30 Potassium 4.2 mmol/L (3.5-5.1) 05/25/18 05:30 Chloride 102 mmol/L (98-107) 05/25/18 05:30 Carbon Dioxide 24 mmol/L (21-32) 05/25/18 05:30 Anion Gap 8 MMOL/L (8-16) 05/25/18 05:30 BUN 29 mg/dL (7-18) H 05/25/18 05:30 Creatinine 1.2 mg/dL (0.55-1.3) 05/25/18 05:30 Creat Clearance w eGFR 57.01 (>60) 05/25/18 05:30 Random Glucose 94 mg/dL (74-106) 05/25/18 05:30 Calcium 8.6 mg/dL (8.5-10.1) 05/25/18 05:30 Magnesium 1.9 mg/dL (1.8-2.4) 05/25/18 05:30 Total Bilirubin 0.8 mg/dL (0.2-1) 05/25/18 05:30 AST 28 U/L (15-37) 05/25/18 05:30 ALT 23 U/L (13-61) 05/25/18 05:30 Alkaline Phosphatase 95 U/L (45-117) 05/25/18 05:30 Creatine Kinase 121 IU/L (26-308) 05/25/18 15:15 Troponin I < 0.02 ng/ml (0.00-0.05) 05/25/18 15:15 B-Natriuretic Peptide 327.4 pg/ml (5-450) 05/24/18 09:50 Total Protein 6.6 g/dl (6.4-8.2) 05/25/18 05:30 Albumin 3.2 g/dl (3.4-5.0) L 05/25/18 05:30 Lipase 311 U/L (73-393) 05/24/18 09:50 Current Medications Generic Name Dose Route Start Last Admin Trade Name Darronq PRN Reason Stop Dose Admin Amlodipine Besylate 10 mg 05/25/18 10:00 05/25/18 09:20 Norvasc - PO 10 mg DAILY [facility] Administration Aspirin 81 mg 05/25/18 10:00 05/25/18 09:20 Asa - PO 81 mg DAILY [facility] Administration Atenolol 100 mg 05/25/18 10:00 05/25/18 09:20 Tenormin - PO 100 mg DAILY [facility] Administration Atorvastatin Calcium 80 mg 05/24/18 22:00 05/24/18 23:00 Lipitor - PO 80 mg HS [facility] Administration Lisinopril 40 mg 05/25/18 10:00 05/25/18 09:20 Prinivil PO 40 mg DAILY [facility] Administration Ranitidine HCl 150 mg 05/24/18 22:00 05/25/18 09:20 Zantac - PO 150 mg BID [facility] Administration Constitutional: Yes: No Distress Eyes: Yes: Conjunctiva Clear HENT: Yes: Atraumatic Neck: Yes: Trachea Midline Cardiovascular: Yes: Regular Rate and Rhythm, Other (healed median sternotomy incision) Respiratory: Yes: CTA Bilaterally Gastrointestinal Inspection: Yes: Scars (RIH,LIH and RLQ incisions) ...Auscultate: Yes: Normoactive Bowel Sounds ...Palpate: Yes: Soft, Other (nontender) ...Rectal Exam: Yes: Guaiac Negative (loose , guaiac negative stool 2+ prostate) Extremities: Yes: Other (amputated 2nd and 3rd digits) Edema: No Peripheral Pulses WNL: Yes Psychiatric: Yes: Alert Labs: CBC, BMP 05/25/18 05:30 05/25/18 05:30 INR, PTT INR 1.08 (0.83-1.09) 05/24/18 09:50 Laboratory Tests 05/24/18 05/25/18 09:50 05:30 Sodium 134 L BUN 34 H 29 H Creatinine 1.4 H 1.2 Total Bilirubin 0.8 Albumin 3.2 L Problem List - Problems (1) Diarrhea Assessment/Plan: I will screen stools for pathogens, C diff and WBCs and order an FUA to exclude a postobstructive paradoxical diarrhea. Steven has stated that he does not want a repeat colonoscopy Code(s): R19.7 - DIARRHEA, UNSPECIFIED Qualifiers: Diarrhea type: unspecified type Qualified Code(s): R19.7 - Diarrhea, unspecified (2) History of adenomatous polyp of colon Code(s): Z86.010 - PERSONAL HISTORY OF COLONIC POLYPS (3) Diverticulosis Code(s): K57.90 - DVRTCLOS OF INTEST, PART UNSP, W/O PERF OR ABSCESS W/O BLEED (4) History of peptic ulcer Code(s): Z87.11 - PERSONAL HISTORY OF PEPTIC ULCER DISEASE (5) GERD (gastroesophageal reflux disease) Assessment/Plan: will start PPI Code(s): K21.9 - GASTRO-ESOPHAGEAL REFLUX DISEASE WITHOUT ESOPHAGITIS (6) Chest pain Code(s): R07.9 - CHEST PAIN, UNSPECIFIED Qualifiers: Chest pain type: unspecified Qualified Code(s): R07.9 - Chest pain, unspecified
[2018-05-25] MEDS ORDERED: PANTOPRAZOLE 40 MG TABLET (FP) PO ONE (20:15)
[2018-05-25] MEDS: ATORVASTATIN CA 80 MG TABLET (FP) PO SCH (21:40)
[2018-05-25] MEDS ORDERED: ALPRAZolam 0.25 MG TABLET PO PRN (22:30)
[2018-05-26 06:15] LABS: HEMATOCRIT 37.1 % (35.4-49); HEMOGLOBIN 12.7 GM/dL (11.7-16.9); MCH 32.8 pg (25.7-33.7); MCHC 34.2 g/dl (32.0-35.9); MEAN PLT VOLUME 9.1 fl (7.5-11.1); PLATELET COUNT 219 K/MM3 (134-434); RBC 3.87 M/mm3 (4.00-5.60); RDW 13.5 % (11.9-15.9); WHITE BLOOD COUNT 8.8 K/mm3 (4.0-10.0)
[2018-05-26 07:04] LABS: ALBUMIN 2.7 g/dl (3.4-5.0); ALK PHOS 80 U/L (45-117); ANION GAP 11 MMOL/L (8-16); BILIRUBIN,TOTAL 0.4 mg/dL (0.2-1); BLOOD UREA NITROGEN 29 mg/dL (7-18); CALCIUM 8.6 mg/dL (8.5-10.1); CHLORIDE 106 mmol/L (98-107); CO2 21 mmol/L (21-32); CREATININE 1.1 mg/dL (0.55-1.3); GLUCOSE,RANDOM 83 mg/dL (74-106); POTASSIUM 4.3 mmol/L (3.5-5.1); SGOT/AST 24 U/L (15-37); SGPT/ALT 22 U/L (13-61); SODIUM 138 mmol/L (136-145); TOT PROT 5.6 g/dl (6.4-8.2)
--- NOTE | 2018-05-26 09:23 | PN ---
Progress Note (short form) - Note Progress Note: Neurology History of Present Illness Mr Hernandez is an 88 y/o male with a history of HTN, HLD, CVA, CAD s/p CO s/p CABG and bilateral carotid endarterectomy presents to the ED due to recurrent falls, who presents to the ER via EMS due to chest pain. CP began at 8 Am on morning of admission, described as sharp, pressure, radiating to left arm, no associated jaw pain but has improved. I was consulted regarding confusion. During my evaluation, is awake, alert, cooperative, knows he's in the hospital and calls it [facility]. Knows name of President but had difficulty with date. Completed CT head which did not show any acute abnormalities. Discussed with primary, Dr. Roldan, not seen in his office in a few years. Baseline is some mild cognitive impairment but otherwise functional. States he's had poor PO intake and mostly consuming soft foods and fruits leading to diahrrea, per patient. Of note had slight white count of 12 but not but on Abx. UA negative, CXR negative. No significant events overnight. Mental status appears to be similar this AM. No B12 or Folate deficency seen on labs. Allergies Allergy/AdvReac Type Severity Reaction Status Date / Time No Known Allergies Allergy Verified 11/14/14 10:31 Active Medications Alprazolam (Xanax -) 0.25 mg PO Q12H PRN PRN Reason: ANXIETY Last Admin: 05/25/18 22:54 Dose: 0.25 mg Amlodipine Besylate (Norvasc -) 10 mg PO DAILY [facility] Last Admin: 05/25/18 09:20 Dose: 10 mg Aspirin (Asa -) 81 mg PO DAILY [facility] Last Admin: 05/25/18 09:20 Dose: 81 mg Atenolol (Tenormin -) 100 mg PO DAILY [facility] Last Admin: 05/25/18 09:20 Dose: 100 mg Atorvastatin Calcium (Lipitor -) 80 mg PO HS [facility] Last Admin: 05/25/18 21:40 Dose: 80 mg Lisinopril (Prinivil) 40 mg PO DAILY [facility] Last Admin: 05/25/18 09:20 Dose: 40 mg *Physical Exam Vital Signs Period Temp Pulse Resp BP Sys/Tatum Pulse Ox Last 24 Hr 98.1 F-98.5 F 65-78 18-20 116-119/58-67 97-97 Gen: Awake, alert, responds to questions, knows place Card: RRR, nml S1,S2 Resp: Normal symmetric effort, lungs clear to auscultation Abdomen: Soft, nontender, bowel sounds active Musculoskeletal: Adequate range of motion without significant deformity Head atraumatic and normocephalic CN: PERRL, EOMI intact, no apparent facial droop, no abnormalities in facial sensation, palate elevates, uvula and tongue midline Motor: Full strength to confrontation in upper and lower extermities proximally and distally. Age related atrophy Sensory: Intact to Temperature, light touch, and pinprick in all extremities Coordination: Intact on [id number] testing Gait: Deferred CBCD WBC 8.8 K/mm3 (4.0-10.0) 05/26/18 05:30 RBC 3.87 M/mm3 (4.00-5.60) L 05/26/18 05:30 Hgb 12.7 GM/dL (11.7-16.9) 05/26/18 05:30 Hct 37.1 % (35.4-49) 05/26/18 05:30 MCV 96.0 fl (80-96) 05/26/18 05:30 MCHC 34.2 g/dl (32.0-35.9) 05/26/18 05:30 RDW 13.5 % (11.9-15.9) 05/26/18 05:30 Plt Count 219 K/MM3 (134-434) 05/26/18 05:30 MPV 9.1 fl (7.5-11.1) 05/26/18 05:30 CMP Sodium 138 mmol/L (136-145) 05/26/18 05:30 Potassium 4.3 mmol/L (3.5-5.1) 05/26/18 05:30 Chloride 106 mmol/L (98-107) 05/26/18 05:30 Carbon Dioxide 21 mmol/L (21-32) 05/26/18 05:30 Anion Gap 11 MMOL/L (8-16) 05/26/18 05:30 BUN 29 mg/dL (7-18) H 05/26/18 05:30 Creatinine 1.1 mg/dL (0.55-1.3) 05/26/18 05:30 Creat Clearance w eGFR > 60 (>60) 05/26/18 05:30 Random Glucose 83 mg/dL (74-106) 05/26/18 05:30 Calcium 8.6 mg/dL (8.5-10.1) 05/26/18 05:30 Total Bilirubin 0.4 mg/dL (0.2-1) 05/26/18 05:30 AST 24 U/L (15-37) 05/26/18 05:30 ALT 22 U/L (13-61) 05/26/18 05:30 Alkaline Phosphatase 80 U/L (45-117) 05/26/18 05:30 Total Protein 5.6 g/dl (6.4-8.2) L 05/26/18 05:30 Albumin 2.7 g/dl (3.4-5.0) L 05/26/18 05:30 CARDIAC ENZYMES Creatine Kinase 168 IU/L (26-308) 05/25/18 21:30 Troponin I < 0.02 ng/ml (0.00-0.05) 05/25/18 21:30 Medical Decision Making 88 y/o male with a history of HTN, HLD, CVA, CAD s/p CO s/p CABG and bilateral carotid endarterectomy presents to the ED due to recurrent falls, who presents to the ER via EMS due to chest pain. CP began at 8 Am on morning of admission, described as sharp, pressure, radiating to left arm, no associated jaw pain but has improved. I was consulted regarding confusion. During my evaluation, is awake, alert, cooperative, knows he's in the hospital and calls it [facility]. Knows name of President but had difficulty with date, believed it to be October 2016. Completed CT head which did not show any acute abnormalities. Discussed with primary, Dr. Roldan, not seen in his office in a few years. Baseline is some mild cognitive impairment but otherwise functional. States he' s had poor PO intake and mostly consuming soft foods and fruits leading to diahrrea, per patient. Of note had slight white count of 12 but not but on Abx. UA and CXR negative. WILL order MRI brain. Continue IV/Po hydration. Medical optmization.
[2018-05-26] MEDS: amLODIPine BESYLATE 10 MG TABLET (FP) PO SCH (10:29)
[2018-05-26] MEDS: LISINOPRIL 20 MG TABLET (FP) PO SCH (10:29)
[2018-05-26] MEDS: ASPIRIN 81 MG CHEWABLE TABLETS PO SCH (10:30)
[2018-05-26] MEDS: ATENOLOL 50 MG TABLET (FP) PO SCH (10:30)
--- NOTE | 2018-05-26 10:37 | PN ---
Progress Note, Physician History of Present Illness: Continued odynaphagia, ruled out for NM. - Current Medication List Current Medications: Active Medications Alprazolam (Xanax -) 0.25 mg PO Q12H PRN PRN Reason: ANXIETY Last Admin: 05/25/18 22:54 Dose: 0.25 mg Amlodipine Besylate (Norvasc -) 10 mg PO DAILY [facility] Last Admin: 05/26/18 10:29 Dose: 10 mg Aspirin (Asa -) 81 mg PO DAILY [facility] Last Admin: 05/26/18 10:30 Dose: 81 mg Atenolol (Tenormin -) 100 mg PO DAILY [facility] Last Admin: 05/26/18 10:30 Dose: 100 mg Atorvastatin Calcium (Lipitor -) 80 mg PO HS [facility] Last Admin: 05/25/18 21:40 Dose: 80 mg Lisinopril (Prinivil) 40 mg PO DAILY [facility] Last Admin: 05/26/18 10:29 Dose: 40 mg - Objective Vital Signs: Vital Signs Temperature 98.4 F 05/26/18 06:57 Pulse Rate 68 05/26/18 06:57 Respiratory Rate 18 05/26/18 06:57 Blood Pressure 119/59 L 05/26/18 06:57 O2 Sat by Pulse Oximetry (%) 97 05/25/18 21:00 Constitutional: Yes: No Distress, Calm, Thin Neck: Yes: Supple Cardiovascular: Yes: Regular Rate and Rhythm Respiratory: Yes: Regular, Diminished Gastrointestinal: Yes: Normal Bowel Sounds, Soft Edema: No Labs: CBC, BMP 05/26/18 05:30 05/26/18 05:30 INR, PTT INR 1.08 (0.83-1.09) 05/24/18 09:50 Problem List - Problems (1) Atypical chest pain Code(s): R07.89 - OTHER CHEST PAIN (2) S/P CABG (coronary artery bypass graft) Code(s): Z95.1 - PRESENCE OF AORTOCORONARY BYPASS GRAFT (3) History of coronary artery stent placement Code(s): Z95.5 - PRESENCE OF CORONARY ANGIOPLASTY IMPLANT AND GRAFT (4) Coronary artery disease Code(s): I25.10 - ATHSCL HEART DISEASE OF [place] CORONARY ARTERY W/O ANG PCTRS Qualifiers: Coronary Disease-Associated Artery/Lesion type: [place] artery [place] vs. transplanted heart: [place] heart Associated angina: without angina Qualified Code(s): I25.10 - Atherosclerotic heart disease of [place] coronary artery without angina pectoris (5) Hyperlipidemia Code(s): E78.5 - HYPERLIPIDEMIA, UNSPECIFIED Qualifiers: Hyperlipidemia type: pure hypercholesterolemia Qualified Code(s): E78.00 - Pure hypercholesterolemia, unspecified; E78.0 - Pure hypercholesterolemia (6) Hypertensive cardiomyopathy Code(s): I11.9 - HYPERTENSIVE HEART DISEASE WITHOUT HEART FAILURE; I43 - CARDIOMYOPATHY IN DISEASES CLASSIFIED ELSEWHERE Qualifiers: Heart failure presence: without heart failure Qualified Code(s): I11.9 - Hypertensive heart disease without heart failure; I43 - Cardiomyopathy in diseases classified elsewhere (7) Diastolic dysfunction without heart failure Code(s): I51.89 - OTHER ILL-DEFINED HEART DISEASES (8) Odynophagia Code(s): R13.10 - DYSPHAGIA, UNSPECIFIED Assessment/Plan Echo: January 29, 2017 Normal LV size and fxn, mild LAE 4.7 cm, mild-mod MR, mod TR RVSP 38 mmHg P-Myoview: November 21, 2015 No ischemia, LVEF 87% 1. Atypical chest pain with odynophagia, r/o esophageal spasm, achalasia, stricture 2. CAD s/p PCI, CABG, angina pectoris 3. Diastolic dysfunction 4. HTN/HCVD 5. Type 2 DM 6. Hyperlipidemia 7. Cerebeovascular disease 8. Carotid stenosis s/p CEA P:1. Ruled out for NM, barium swallow, GI evaluation appreciated 2. Continue Atenolol 100 qd, Lipitor 80 qhs, Zantac 150 bid, ASA 81 qd, Lotrel 10/40 qd 3. D/c telemetry
--- NOTE | 2018-05-26 11:44 | PN ---
Progress Note, Physician History of Present Illness: Pt w/o CP now. Pt w/o SOB, palpitations, dizziness. Pt w/o diarrhea, nausea, vomiting. Pt't and dg at bedside; both confirmed that pt is forgetful, agitated at home, more here. - Current Medication List Current Medications: Active Medications Alprazolam (Xanax -) 0.25 mg PO Q12H PRN PRN Reason: ANXIETY Last Admin: 05/25/18 22:54 Dose: 0.25 mg Amlodipine Besylate (Norvasc -) 10 mg PO DAILY [facility] Last Admin: 05/26/18 10:29 Dose: 10 mg Aspirin (Asa -) 81 mg PO DAILY [facility] Last Admin: 05/26/18 10:30 Dose: 81 mg Atenolol (Tenormin -) 100 mg PO DAILY [facility] Last Admin: 05/26/18 10:30 Dose: 100 mg Atorvastatin Calcium (Lipitor -) 80 mg PO HS [facility] Last Admin: 05/25/18 21:40 Dose: 80 mg Lisinopril (Prinivil) 40 mg PO DAILY [facility] Last Admin: 05/26/18 10:29 Dose: 40 mg - Objective Vital Signs: Vital Signs Temperature 98.0 F 05/26/18 10:00 Pulse Rate 85 05/26/18 10:00 Respiratory Rate 20 05/26/18 10:00 Blood Pressure 111/62 05/26/18 10:00 O2 Sat by Pulse Oximetry (%) 95 05/26/18 10:00 Constitutional: Yes: Calm, Other (upset that si weak) Cardiovascular: Yes: Regular Rate and Rhythm, S1, S2 Respiratory: Yes: Regular, CTA Bilaterally. No: Rales Gastrointestinal: Yes: Normal Bowel Sounds, Soft. No: Tenderness Edema: No Neurological: Yes: Alert, Oriented (to place, family) Labs: CBC, BMP 05/26/18 05:30 05/26/18 05:30 INR, PTT INR 1.08 (0.83-1.09) 05/24/18 09:50 Problem List - Problems (1) Chest pain Code(s): R07.9 - CHEST PAIN, UNSPECIFIED Qualifiers: Chest pain type: unspecified Qualified Code(s): R07.9 - Chest pain, unspecified (2) Diarrhea Code(s): R19.7 - DIARRHEA, UNSPECIFIED Qualifiers: Diarrhea type: unspecified type Qualified Code(s): R19.7 - Diarrhea, unspecified (3) Coronary artery disease Code(s): I25.10 - ATHSCL HEART DISEASE OF [place] CORONARY ARTERY W/O ANG PCTRS Qualifiers: Coronary Disease-Associated Artery/Lesion type: [place] artery [place] vs. transplanted heart: [place] heart Associated angina: without angina Qualified Code(s): I25.10 - Atherosclerotic heart disease of [place] coronary artery without angina pectoris (4) S/P CABG (coronary artery bypass graft) Code(s): Z95.1 - PRESENCE OF AORTOCORONARY BYPASS GRAFT (5) Diastolic dysfunction without heart failure Code(s): I51.89 - OTHER ILL-DEFINED HEART DISEASES (6) Hyperlipidemia Code(s): E78.5 - HYPERLIPIDEMIA, UNSPECIFIED Qualifiers: Hyperlipidemia type: pure hypercholesterolemia Qualified Code(s): E78.00 - Pure hypercholesterolemia, unspecified; E78.0 - Pure hypercholesterolemia (7) Shingles Code(s): B02.9 - ZOSTER WITHOUT COMPLICATIONS (8) Weakness generalized Code(s): R53.1 - WEAKNESS (9) Leukocytosis Code(s): D72.829 - ELEVATED WHITE BLOOD CELL COUNT, UNSPECIFIED (10) Anxiety Code(s): F41.9 - ANXIETY DISORDER, UNSPECIFIED (11) Confusion Code(s): R41.0 - DISORIENTATION, UNSPECIFIED (12) Swallowing difficulty Code(s): R13.10 - DYSPHAGIA, UNSPECIFIED (13) Dementia Code(s): F03.90 - UNSPECIFIED DEMENTIA WITHOUT BEHAVIORAL DISTURBANCE Assessment/Plan Admitted to monitor bed Serial CE- to monitor Cardio, GI Consult are appreciated. Case was d/w Dr. Jones. Swallow evaluation. Pt for Matthew MRI I d/w pt's and dg at bedside, pt's care and evaluation paln was reviewed; all questions were answered. AM labs Case was d/w pt's nurse
--- NOTE | 2018-05-26 12:30 | CONSULT ---
Admitting History and Physical - Primary Care Physician PCP: Francisco Roldan - Admission History of Present Illness: 88 y/o male with a history of HTN, HLD, CVA, CAD s/p MN s/p CABG and bilateral carotid endarterectomy presents to the ED due to recurrent falls, who presents to the ER via EMS due to chest pain Pt c/o in throat when he swallows. Selected Entries 05/25/18 05/25/18 05/25/18 03:32 04:29 10:00 Breakfast 100% Lunch Supper Temperature 98.3 F 97.5 F L 98.1 F 05/25/18 05/25/18 05/25/18 12:04 14:00 15:24 Breakfast 100% Lunch 50% Supper Temperature 98.2 F 05/25/18 05/25/18 05/26/18 17:30 19:55 06:57 Breakfast Lunch Supper 50% Temperature 98.5 F 98.4 F 05/26/18 10:00 Breakfast 50% Lunch Supper Temperature 98.0 F Laboratory Tests 05/24/18 05/25/18 05/26/18 09:50 05:30 05:30 WBC 12.4 H 11.0 H 8.8 On reg diet/thin liquid This is my first consult with this pt. History Source: Family Member Limitations to Obtaining History: Clinical Condition - Past Medical History EDGE INKER HEELS: Yes: TIA (1995) Cardiovascular: Yes: CAD (quadruple CABG 10/05 ), CHF, HTN, Hyperlipdemia, MN, Other (bilateral endarterectomies for carotid stenosis) Gastrointestinal: Yes: Diverticulosis, GERD, Peptic Ulcer Disease, Other (colon adenomas) Renal/: Yes: Renal Failure Infectious Disease: Yes: Herpes Zoster - Past Surgical History Past Surgical History: Yes: Appendectomy, CABG (quadruple 10/05), Carotid Endarterectomy (bilateral), Cataract Removal (bilateral), Colonoscopy, Hernia Repair (RIH and LIH), Upper Endoscopy - Smoking History Smoking history: Never smoked Have you smoked in the past 12 months: No - Alcohol/Substance Use Hx Alcohol Use: No - Social History ADL: Independent 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 History of Recent Travel: No History - Admission Reason For Visit: DIARRHEA, CHEST PAIN - Diagnostics X-ray: Report Reviewed - General Mental Status: Alert and Oriented (grossly), Awake and Alert, Able to Follow Commands, Forgetful Attention: Intact Ability to Follow Directions: Fair Head/Neck Control: Fair - Hearing Hearing: Functional Speech Evaluation - Communication Primary Language: SWEDISH Communication: Yes: Simple Responses Oral Expression Ability: Yes: Mild Impairment, Moderate Impairment - Speech Production Intelligibility: Yes: Mildly Impaired, Moderately Impaired - Speech Characteristics Voice Loudness: Mildly Soft/Quiet, Moderately Soft/Quiet Voice Pitch: Yes: Normal Voice Phonatory-based Quality: Yes: Dysphonia Speech Clarity: < 75% Nasal Resonance: Normal Articulation: Yes: Precise - Language/Auditory Comprehension Follows: Yes: 1 Stage Simple Commands - Swallow Evaluation/Bedside Assessment Current Nutritional Intake: Regular, Thin Liquids, Other (fed by family. Quite weak.) Dentition: Yes: Adequate Facial Symmetry at Rest: Symmetrical Against Resistance Opening: Normal Against Resistance Closing: Normal Pucker Lips: Normal Smile: Normal Lingual Movement: Normal, Symmetric Lingual Speed of Movement: Normal Lingual Movement Strgth Against Opposition: Reduced Lingual Movement Characteristics: Normal Laryngeal Movement: Labored,delay initiation Rate of Intake: WFL Bolus Size: Small Labial Seal: WFL Chewing: WFL Oral Prep Time: WFL A-P Transit: WFL Pocketing: None Timing of Swallow: Delayed Odynophagia: Pharyngeal Coughing/Throat Clear: No Change in Voice: No Recommendations - Speech Evaluation, Impression/Plan Impression: Pt c/o in throat when he swallows. Pt seems to grimace and reports pain when drinking with vocal wetness. r/o aspiration? CXR (-).Rare cough while eating.No thrush identified. - Dysphagia Impressions/Plan Dysphagia Impressions: Ongoing Evaluation *Silent aspiration: cannot be R/O at bedside Recommendations: ENT Consult (if odynophagia persists), MBS w Esophagus
--- NOTE | 2018-05-26 12:37 | PN ---
GI Progress Note Subjective: GI NOte: NO BMs so far, Await FUA to exclude fecal impaction or partial obstruction. Discussed situation with and daughter at the bedside - Objective Vital Signs: Vital Signs Temperature 98.0 F 05/26/18 10:00 Pulse Rate 85 05/26/18 10:00 Respiratory Rate 20 05/26/18 10:00 Blood Pressure 111/62 05/26/18 10:00 O2 Sat by Pulse Oximetry (%) 95 05/26/18 10:00 Constitutional: Calm ...Auscultate: Yes: Normoactive Bowel Sounds ...Palpate: Yes: Soft, Other (nontender) Labs: CBC, BMP 05/26/18 05:30 05/26/18 05:30 INR, PTT INR 1.08 (0.83-1.09) 05/24/18 09:50 Problem List - Problems (1) Diarrhea Assessment/Plan: Await screening of stools for pathogens, C diff and WBCs and FUA to exclude a postobstructive paradoxical diarrhea. Code(s): R19.7 - DIARRHEA, UNSPECIFIED Qualifiers: Diarrhea type: unspecified type Qualified Code(s): R19.7 - Diarrhea, unspecified (2) History of adenomatous polyp of colon Code(s): Z86.010 - PERSONAL HISTORY OF COLONIC POLYPS (3) Diverticulosis Code(s): K57.90 - DVRTCLOS OF INTEST, PART UNSP, W/O PERF OR ABSCESS W/O BLEED (4) History of peptic ulcer Code(s): Z87.11 - PERSONAL HISTORY OF PEPTIC ULCER DISEASE (5) GERD (gastroesophageal reflux disease) Code(s): K21.9 - GASTRO-ESOPHAGEAL REFLUX DISEASE WITHOUT ESOPHAGITIS (6) Chest pain Code(s): R07.9 - CHEST PAIN, UNSPECIFIED Qualifiers: Chest pain type: unspecified Qualified Code(s): R07.9 - Chest pain, unspecified
--- NOTE | 2018-05-26 17:54 | CON.PSY ---
Psychiatry Consult Chief Complaint: 88 year old male with a history of Dementia Vasular type. admittede from home, reports of agitationj. mostly sundowning. Symptoms: reports: Memory Impairment, Irritability, Inability to Control Temper - Previous Psychiatric Treatment Outpatient: None Inpatient: None - Previous Substance Abuse Treatment Outpatient: None Inpatient: None - Current Medications Current Medications: Active Medications Amlodipine Besylate (Norvasc -) 10 mg PO DAILY [facility] Last Admin: 05/26/18 10:29 Dose: 10 mg Aspirin (Asa -) 81 mg PO DAILY [facility] Last Admin: 05/26/18 10:30 Dose: 81 mg Atenolol (Tenormin -) 100 mg PO DAILY [facility] Last Admin: 05/26/18 10:30 Dose: 100 mg Atorvastatin Calcium (Lipitor -) 80 mg PO [facility] Last Admin: 05/25/18 21:40 Dose: 80 mg Lisinopril (Prinivil) 40 mg PO DAILY [facility] Last Admin: 05/26/18 10:29 Dose: 40 mg - Allergies Allergies: Allergies Allergy/AdvReac Type Severity Reaction Status Date / Time No Known Allergies Allergy Verified 11/14/14 10:31 - Current Living Status Usual Living Arrangement: With Significant Other - Current Mental Status Evaluation Appearance: Disheveled Attitude: Guarded - Affect Affect: Constrictive Appropriateness: Not Appropriate - Mood Mood: Irritable - Speech/Language Expressive: Delayed - Psychomotor Activity Psychomotor Activity: Hyperactive - Thought Process Thought Process: Circumstantial - Thought Content Hallucinations: Absent Delusions: Absent - Self Perception Self Perception: No Impairment - Cognition Attention: Diminished Memory, Immediate Recall: Impaired Memory, Short Term: 2/3 Memory, Remote with Promptin/3 - Concentration Serial Sevens Intact: No Simple Calculations Intact: No - Abstraction Proverb Interpretation: Impaired Judgement: Moderately Impaired - Insight Insight: Impaired - Impulse Control Impulse Control: Moderately Impaired - Suicidal Ideation Suicidal Ideation: No - Homicidal Ideation Homicidal Ideation: No Assessment/Plan 1) d/c Xanax prn. can give ativan 1mg im berfore Ct scan. @) zyprexa 5mg po hs for agitaion.
[2018-05-26] MEDS: ATORVASTATIN CA 80 MG TABLET (FP) PO SCH (20:59)
[2018-05-26] MEDS: OLANZapine 5 MG TABLET PO SCH (20:59)
[2018-05-27 06:22] LABS: HEMATOCRIT 38.2 % (35.4-49); HEMOGLOBIN 13.2 GM/dL (11.7-16.9); MCH 33.5 pg (25.7-33.7); MCHC 34.6 g/dl (32.0-35.9); MEAN CELL VOLUME 96.7 fl (80-96); MEAN PLT VOLUME 9.3 fl (7.5-11.1); PLATELET COUNT 243 K/MM3 (134-434); RBC 3.95 M/mm3 (4.00-5.60); RDW 13.4 % (11.9-15.9); WHITE BLOOD COUNT 10.5 K/mm3 (4.0-10.0)
[2018-05-27 06:54] LABS: ANION GAP 12 MMOL/L (8-16); BLOOD UREA NITROGEN 22 mg/dL (7-18); CALCIUM 8.8 mg/dL (8.5-10.1); CHLORIDE 107 mmol/L (98-107); CO2 23 mmol/L (21-32); CREATININE 1.1 mg/dL (0.55-1.3); GLUCOSE,RANDOM 88 mg/dL (74-106); POTASSIUM 4.5 mmol/L (3.5-5.1); SODIUM 141 mmol/L (136-145)
--- NOTE | 2018-05-27 09:11 | PN ---
Progress Note (short form) - Note Progress Note: Neurology History of Present Illness Mr Hernandez is an 88 y/o male with a history of HTN, HLD, CVA, CAD s/p [place] s/p CABG and bilateral carotid endarterectomy presents to the ED due to recurrent falls, who presents to the ER via EMS due to chest pain. CP began at 8 Am on morning of admission, described as sharp, pressure, radiating to left arm, no associated jaw pain but has improved. I was consulted regarding confusion. During my evaluation, is awake, alert, cooperative, knows he's in the hospital and calls it [facility]. Knows name of President but had difficulty with date. Completed CT head which did not show any acute abnormalities. Discussed with primary, Dr. Roldan, not seen in his office in a few years. Baseline is some mild cognitive impairment but otherwise functional. States he's had poor PO intake and mostly consuming soft foods and fruits leading to diahrrea, per patient. Of note had slight white count of 12 but not but on Abx. UA negative, CXR negative. No significant events overnight. Mental status appears to be similar this AM. No B12 or Folate deficency seen on labs. Per notes, family reported ongoing cognitive decline, worse here. MRI brain ordered not completed , discussed with nurse hopefully will be done today. WBC downtrending, BUN/Cr improving. Psych note reviewed, Zyprexa started. Allergies Allergy/AdvReac Type Severity Reaction Status Date / Time No Known Allergies Allergy Verified 11/14/14 10:31 Active Medications Amlodipine Besylate (Norvasc -) 10 mg PO DAILY [facility] Last Admin: 05/26/18 10:29 Dose: 10 mg Aspirin (Asa -) 81 mg PO DAILY [facility] Last Admin: 05/26/18 10:30 Dose: 81 mg Atenolol (Tenormin -) 100 mg PO DAILY [facility] Last Admin: 05/26/18 10:30 Dose: 100 mg Atorvastatin Calcium (Lipitor -) 80 mg PO HS [facility] Last Admin: 05/26/18 20:59 Dose: 80 mg Lisinopril (Prinivil) 40 mg PO DAILY [facility] Last Admin: 05/26/18 10:29 Dose: 40 mg Olanzapine (Zyprexa -) 5 mg PO HS [facility] Last Admin: 05/26/18 20:59 Dose: 5 mg *Physical Exam Vital Signs Temperature 98 F 05/27/18 02:09 Pulse Rate 61 05/27/18 06:02 Respiratory Rate 20 05/27/18 06:02 Blood Pressure 102/53 L 05/27/18 06:02 O2 Sat by Pulse Oximetry (%) 95 05/26/18 21:00 Gen: Awake, alert, responds to questions, knows place Card: RRR, nml S1,S2 Resp: Normal symmetric effort, lungs clear to auscultation Abdomen: Soft, nontender, bowel sounds active Musculoskeletal: Adequate range of motion without significant deformity Head atraumatic and normocephalic CN: PERRL, EOMI intact, no apparent facial droop, no abnormalities in facial sensation, palate elevates, uvula and tongue midline Motor: Full strength to confrontation in upper and lower extermities proximally and distally. Age related atrophy Sensory: Intact to Temperature, light touch, and pinprick in all extremities Coordination: Intact on [id number] testing Gait: Deferred CBCD WBC 10.5 K/mm3 (4.0-10.0) H 05/27/18 05:30 RBC 3.95 M/mm3 (4.00-5.60) L 05/27/18 05:30 Hgb 13.2 GM/dL (11.7-16.9) 05/27/18 05:30 Hct 38.2 % (35.4-49) 05/27/18 05:30 MCV 96.7 fl (80-96) H 05/27/18 05:30 MCHC 34.6 g/dl (32.0-35.9) 05/27/18 05:30 RDW 13.4 % (11.9-15.9) 05/27/18 05:30 Plt Count 243 K/MM3 (134-434) 05/27/18 05:30 MPV 9.3 fl (7.5-11.1) 05/27/18 05:30 CMP Sodium 141 mmol/L (136-145) 05/27/18 05:30 Potassium 4.5 mmol/L (3.5-5.1) 05/27/18 05:30 Chloride 107 mmol/L (98-107) 05/27/18 05:30 Carbon Dioxide 23 mmol/L (21-32) 05/27/18 05:30 Anion Gap 12 MMOL/L (8-16) 05/27/18 05:30 BUN 22 mg/dL (7-18) H 05/27/18 05:30 Creatinine 1.1 mg/dL (0.55-1.3) 05/27/18 05:30 Creat Clearance w eGFR > 60 (>60) 05/27/18 05:30 Random Glucose 88 mg/dL (74-106) 05/27/18 05:30 Calcium 8.8 mg/dL (8.5-10.1) 05/27/18 05:30 Total Bilirubin 0.4 mg/dL (0.2-1) 05/26/18 05:30 AST 24 U/L (15-37) 05/26/18 05:30 ALT 22 U/L (13-61) 05/26/18 05:30 Alkaline Phosphatase 80 U/L (45-117) 05/26/18 05:30 Total Protein 5.6 g/dl (6.4-8.2) L 05/26/18 05:30 Albumin 2.7 g/dl (3.4-5.0) L 05/26/18 05:30 CARDIAC ENZYMES Creatine Kinase 103 IU/L (26-308) 05/26/18 21:45 Troponin I < 0.02 ng/ml (0.00-0.05) 05/26/18 21:45 Medical Decision Making 88 y/o male with a history of HTN, HLD, CVA, CAD s/p TN s/p CABG and bilateral carotid endarterectomy presents to the ED due to recurrent falls, who presents to the ER via EMS due to chest pain. CP began at 8 Am on morning of admission, described as sharp, pressure, radiating to left arm, no associated jaw pain but has improved. I was consulted regarding confusion. During my evaluation, is awake, alert, cooperative, knows he's in the hospital and calls it [facility]. Knows name of President but had difficulty with date, believed it to be October 2016. Completed CT head which did not show any acute abnormalities. Discussed with primary, Dr. Roldan, not seen in his office in a few years. Baseline is some mild cognitive impairment but reportedly with progressive cogitive decline. States he's had poor PO intake and mostly consuming soft foods and fruits leading to diahrrea, per patient. Of note had slight white count of 12, which has improved. UA and CXR negative. BUN/Cr improved, continued hydration. MRI brain pending. Psych note reviewed. No objection to Zyprexa.
[2018-05-27] MEDS: ASPIRIN 81 MG CHEWABLE TABLETS PO SCH (09:33)
[2018-05-27] MEDS: LISINOPRIL 20 MG TABLET (FP) PO SCH (09:33)
[2018-05-27] MEDS: ATENOLOL 50 MG TABLET (FP) PO SCH (09:33)
[2018-05-27] MEDS: amLODIPine BESYLATE 10 MG TABLET (FP) PO SCH (09:33)
--- NOTE | 2018-05-27 11:16 | PN ---
Progress Note, Physician History of Present Illness: Atypical chest pain resolved, awaiting brain MRI. - Current Medication List Current Medications: Active Medications Amlodipine Besylate (Norvasc -) 10 mg PO DAILY [facility] Last Admin: 05/27/18 09:33 Dose: 10 mg Aspirin (Asa -) 81 mg PO DAILY [facility] Last Admin: 05/27/18 09:33 Dose: 81 mg Atenolol (Tenormin -) 100 mg PO DAILY [facility] Last Admin: 05/27/18 09:33 Dose: 100 mg Atorvastatin Calcium (Lipitor -) 80 mg PO HS [facility] Last Admin: 05/26/18 20:59 Dose: 80 mg Lisinopril (Prinivil) 40 mg PO DAILY [facility] Last Admin: 05/27/18 09:33 Dose: 40 mg Olanzapine (Zyprexa -) 5 mg PO HS [facility] Last Admin: 05/26/18 20:59 Dose: 5 mg - Objective Vital Signs: Vital Signs Temperature 98 F 05/27/18 02:09 Pulse Rate 61 05/27/18 06:02 Respiratory Rate 20 05/27/18 06:02 Blood Pressure 102/53 L 05/27/18 06:02 O2 Sat by Pulse Oximetry (%) 95 05/26/18 21:00 Constitutional: Yes: No Distress, Calm, Thin Neck: Yes: Supple Cardiovascular: Yes: Regular Rate and Rhythm Respiratory: Yes: Regular, CTA Bilaterally Gastrointestinal: Yes: Normal Bowel Sounds, Soft Edema: No Labs: CBC, BMP 05/27/18 05:30 05/27/18 05:30 INR, PTT INR 1.08 (0.83-1.09) 05/24/18 09:50 - ....Imaging EKG: Report Reviewed (Tele: NSR) Problem List - Problems (1) Atypical chest pain Code(s): R07.89 - OTHER CHEST PAIN (2) S/P CABG (coronary artery bypass graft) Code(s): Z95.1 - PRESENCE OF AORTOCORONARY BYPASS GRAFT (3) History of coronary artery stent placement Code(s): Z95.5 - PRESENCE OF CORONARY ANGIOPLASTY IMPLANT AND GRAFT (4) Coronary artery disease Code(s): I25.10 - ATHSCL HEART DISEASE OF [place] CORONARY ARTERY W/O ANG PCTRS Qualifiers: Coronary Disease-Associated Artery/Lesion type: tribe artery [place] vs. transplanted heart: tribe heart Associated angina: without angina Qualified Code(s): I25.10 - Atherosclerotic heart disease of tribe coronary artery without angina pectoris (5) Hyperlipidemia Code(s): E78.5 - HYPERLIPIDEMIA, UNSPECIFIED Qualifiers: Hyperlipidemia type: pure hypercholesterolemia Qualified Code(s): E78.00 - Pure hypercholesterolemia, unspecified; E78.0 - Pure hypercholesterolemia (6) Hypertensive cardiomyopathy Code(s): I11.9 - HYPERTENSIVE HEART DISEASE WITHOUT HEART FAILURE; I43 - CARDIOMYOPATHY IN DISEASES CLASSIFIED ELSEWHERE Qualifiers: Heart failure presence: without heart failure Qualified Code(s): I11.9 - Hypertensive heart disease without heart failure; I43 - Cardiomyopathy in diseases classified elsewhere (7) Diastolic dysfunction without heart failure Code(s): I51.89 - OTHER ILL-DEFINED HEART DISEASES Assessment/Plan Echo: January 29, 2017 Normal LV size and fxn, mild LAE 4.7 cm, mild-mod MR, mod TR RVSP 38 mmHg P-Myoview: November 21, 2015 No ischemia, LVEF 87% 1. Atypical chest pain resolved 2. CAD s/p PCI, CABG, angina pectoris 3. Diastolic dysfunction 4. HTN/HCVD 5. Type 2 DM 6. Hyperlipidemia 7. Cerebeovascular disease 8. Carotid stenosis s/p CEA P:1. Ruled out for MA, GI evaluation appreciated 2. Continue Atenolol 100 qd, Lipitor 80 qhs, Zantac 150 bid, ASA 81 qd, Lotrel 10/40 qd 3. D/c telemetry 4. F/u brain MRI
--- NOTE | 2018-05-27 11:16 | PN ---
Progress Note, BUDGET EXAMINER - Note Progress Note: Selected Entries 05/26/18 05/26/18 05/26/18 06:57 10:00 12:59 Breakfast 50% 50% Lunch 50% Supper Temperature 98.4 F 98.0 F 05/26/18 05/26/18 05/26/18 14:40 17:15 19:58 Breakfast Lunch Supper 100% Temperature 98.2 F 98.8 F 05/26/18 05/27/18 21:00 02:09 Breakfast Lunch Supper Temperature 98.7 F 98 F Laboratory Tests 05/26/18 05/27/18 05:30 05:30 WBC 8.8 10.5 H Tolerating diet.
[2018-05-27] MEDS ORDERED: LORazepam 2 MG/ML SDV VIAL IM ONE ×2 (11:30→15:00)
--- NOTE | 2018-05-27 16:11 | RAPID ---
<Jojo Banuelos - Last Filed: 05/27/18 18:04> Physical Examination Vital Signs: Vital Signs Temperature 98 F 05/27/18 10:00 Pulse Rate 68 05/27/18 10:00 Respiratory Rate 18 05/27/18 10:00 Blood Pressure 100/60 05/27/18 10:00 O2 Sat by Pulse Oximetry (%) 95 05/27/18 09:00 Labs: CBC, BMP 05/27/18 05:30 05/27/18 05:30 Rapid Response - Rapid Response Assessment: Rapid response called at 3:54pm. Primary team arrived. Patient had an unwitnessed fall along the hallway of the radiology department. As per nursing, patient crawled off the siderail of the stretcher and fell. Nurse heard a loud sound, found patient on the floor and immediately called rapid response. The medical team helped the patient back up to the bed. General: Patient is awake, alert, not in distress VS: BP 133/[id number] 94% Head: +abrasion at the frontal area Neuro exam: oriented to place, patient is able to converse with MD when asked questions When asked why he was trying to climbed off the bed, pt responded he wanted to go back to his room Sensation intact Motor - subtle weakness of the right leg (chronic), full strength in all other extremities A: head trauma s/p fall P: Head CT scan without contrast done C-spine CT without contrast done Post-fall protocol ordered Neuro checks q2x12h, then q4 Proper wound care for abrasion Fall precaution. <Naren Fox - Last Filed: 05/29/18 14:30> Rapid Response - Rapid Response Assessment: Agree with above findings and plan of care. I was present through the entire rapid response. C- collar was placed pending CT brain/C-spine results, which was later discontinued. total critical care time spent at bedside 35 min.
--- NOTE | 2018-05-27 16:15 | FALL ---
Fall Exam - Event Witnessed fall: No Location of Fall: Hallway Fall from: Stretcher - Pre-Fall Mental Status: Alert, Cooperative Current Medications: Current Medications Generic Name Dose Route Start Last Admin Trade Name Jose PRN Reason Stop Dose Admin Amlodipine Besylate 10 mg 05/25/18 10:00 05/27/18 09:33 Norvasc - PO 10 mg DAILY [facility] Administration Aspirin 81 mg 05/25/18 10:00 05/27/18 09:33 Asa - PO 81 mg DAILY [facility] Administration Atenolol 100 mg 05/25/18 10:00 05/27/18 09:33 Tenormin - PO 100 mg DAILY [facility] Administration Atorvastatin Calcium 80 mg 05/24/18 22:00 05/26/18 20:59 Lipitor - PO 80 mg HS [facility] Administration Lisinopril 40 mg 05/25/18 10:00 05/27/18 09:33 Prinivil PO 40 mg DAILY [facility] Administration Olanzapine 5 mg 05/26/18 22:00 05/26/18 20:59 Zyprexa - PO 5 mg HS [facility] Administration - Post-Fall Patient Outcome: Abrasion/Bruise Exam Findings: General: Patient is awake, alert, cooperative, not in distress. VS: BP 133/[address] 94%. Head: +abrasion at the frontal area. oriented to place, patient is able to converse with MD when asked questions. When asked why he was trying to climbed off the bed, pt responded he wanted to go back to his room. Sensation intact. Motor - subtle weakness of the right leg (chronic) , full strength in all other extremities Treatment: None Vital Signs: Vital Signs Temperature 98 F 05/27/18 10:00 Pulse Rate 68 05/27/18 10:00 Respiratory Rate 18 05/27/18 10:00 Blood Pressure 100/60 05/27/18 10:00 O2 Sat by Pulse Oximetry (%) 95 05/27/18 09:00 LOC Post-Fall: Awake, Alert, Oriented Identify factors for HIGH RISK for Head Injury: Known to have hit head
--- NOTE | 2018-05-27 19:46 | PN ---
Progress Note, Physician History of Present Illness: Event were noticed (per pt's nurse: pt at radiology department for brain MRI, agitated and not able to tolerate the procedure, received 1 mg Ativan; patient still agitated and not able to tolerate the MRI, received 1 mg of Ativan; patient still agitated and not able to tolerate the MRI; MRI was cancelled and patient was placed on stretcher; while waiting to be transported to the 4-th floor patient tried to get out of the stretcher and fell to the floor; patient hit his head). Fall protocol was initiated (head and spine CT scans are negative for acute disease). Pt w/o RODRIGUEZ, back pain, shoulder pain, hip pain, extremities pain, motor weakness , sensory deficit. Pt w/o CP now. Pt w/o SOB, palpitations, dizziness. Pt w/o nausea, vomiting, abd pain. Pt is trying to stand up and get out of wheelchair frequently - Current Medication List Current Medications: Active Medications Amlodipine Besylate (Norvasc -) 10 mg PO DAILY [facility] Last Admin: 05/27/18 09:33 Dose: 10 mg Aspirin (Asa -) 81 mg PO DAILY [facility] Last Admin: 05/27/18 09:33 Dose: 81 mg Atenolol (Tenormin -) 100 mg PO DAILY [facility] Last Admin: 05/27/18 09:33 Dose: 100 mg Atorvastatin Calcium (Lipitor -) 80 mg PO [facility] Last Admin: 05/26/18 20:59 Dose: 80 mg Lisinopril (Prinivil) 40 mg PO DAILY [facility] Last Admin: 05/27/18 09:33 Dose: 40 mg Olanzapine (Zyprexa -) 5 mg PO [facility] Last Admin: 05/26/18 20:59 Dose: 5 mg - Objective Vital Signs: Vital Signs Temperature 98 F 05/27/18 16:03 Pulse Rate 72 05/27/18 16:03 Respiratory Rate 18 05/27/18 16:03 Blood Pressure 104/60 05/27/18 16:03 O2 Sat by Pulse Oximetry (%) 95 05/27/18 09:00 Constitutional: Yes: Well Nourished, No Distress Cardiovascular: Yes: Regular Rate and Rhythm, S1, S2 Respiratory: Yes: Regular, CTA Bilaterally. No: Rales Gastrointestinal: Yes: Normal Bowel Sounds, Soft. No: Tenderness Edema: No Integumentary: Yes: Other (1 inch abrassion on the forehead, no bleeding) Neurological: Yes: Alert, Oriented, Other (motor and sensory examination is symmetric in UE, LE, face) Labs: CBC, BMP 05/27/18 05:30 05/27/18 05:30 INR, PTT INR 1.08 (0.83-1.09) 05/24/18 09:50 Problem List - Problems (1) Chest pain Code(s): R07.9 - CHEST PAIN, UNSPECIFIED Qualifiers: Chest pain type: unspecified Qualified Code(s): R07.9 - Chest pain, unspecified (2) Diarrhea Code(s): R19.7 - DIARRHEA, UNSPECIFIED Qualifiers: Diarrhea type: unspecified type Qualified Code(s): R19.7 - Diarrhea, unspecified (3) Coronary artery disease Code(s): I25.10 - ATHSCL HEART DISEASE OF [place] CORONARY ARTERY W/O ANG PCTRS Qualifiers: Coronary Disease-Associated Artery/Lesion type: [place] artery [place] vs. transplanted heart: [place] heart Associated angina: without angina Qualified Code(s): I25.10 - Atherosclerotic heart disease of [place] coronary artery without angina pectoris (4) S/P CABG (coronary artery bypass graft) Code(s): Z95.1 - PRESENCE OF AORTOCORONARY BYPASS GRAFT (5) Diastolic dysfunction without heart failure Code(s): I51.89 - OTHER ILL-DEFINED HEART DISEASES (6) Hyperlipidemia Code(s): E78.5 - HYPERLIPIDEMIA, UNSPECIFIED Qualifiers: Hyperlipidemia type: pure hypercholesterolemia Qualified Code(s): E78.00 - Pure hypercholesterolemia, unspecified; E78.0 - Pure hypercholesterolemia (7) Shingles Code(s): B02.9 - ZOSTER WITHOUT COMPLICATIONS (8) Weakness generalized Code(s): R53.1 - WEAKNESS (9) Leukocytosis Code(s): D72.829 - ELEVATED WHITE BLOOD CELL COUNT, UNSPECIFIED (10) Anxiety Code(s): F41.9 - ANXIETY DISORDER, UNSPECIFIED (11) Confusion Code(s): R41.0 - DISORIENTATION, UNSPECIFIED (12) Swallowing difficulty Code(s): R13.10 - DYSPHAGIA, UNSPECIFIED (13) Fall Code(s): W19.XXXA - UNSPECIFIED FALL, INITIAL ENCOUNTER (14) Head trauma Code(s): S09.90XA - UNSPECIFIED INJURY OF HEAD, INITIAL ENCOUNTER Assessment/Plan Fall protocol 1:1 observation (Vest restrain until 1:1 is started) Repeat Head CT scan tomorrow To f/u with Psychiatry, Neurology. 05/24/2018 pt was admitted to monitor bed Serial CE- to monitor Cardio, GI, Neuro, Swallow, Psychiatry Consult are appreciated. AM labs
[2018-05-27] MEDS: OLANZapine 5 MG TABLET PO SCH (21:00)
[2018-05-27] MEDS: ATORVASTATIN CA 80 MG TABLET (FP) PO SCH (21:00)
[2018-05-28 07:13] LABS: HEMATOCRIT 41.3 % (35.4-49); HEMOGLOBIN 13.9 GM/dL (11.7-16.9); MCH 32.7 pg (25.7-33.7); MCHC 33.6 g/dl (32.0-35.9); MEAN CELL VOLUME 97.3 fl (80-96); MEAN PLT VOLUME 9.1 fl (7.5-11.1); PLATELET COUNT 220 K/MM3 (134-434); RBC 4.25 M/mm3 (4.00-5.60); RDW 13.1 % (11.9-15.9); WHITE BLOOD COUNT 11.3 K/mm3 (4.0-10.0)
[2018-05-28 08:18] LABS: ALK PHOS 97 U/L (45-117); ANION GAP 5 MMOL/L (8-16); BILIRUBIN,TOTAL 0.5 mg/dL (0.2-1); BLOOD UREA NITROGEN 25 mg/dL (7-18); CHLORIDE 103 mmol/L (98-107); CO2 29 mmol/L (21-32); CREATININE 1.1 mg/dL (0.55-1.3); GLUCOSE,RANDOM 108 mg/dL (74-106); POTASSIUM 4.3 mmol/L (3.5-5.1); SGOT/AST 34 U/L (15-37); SGPT/ALT 28 U/L (13-61); SODIUM 137 mmol/L (136-145); TOT PROT 6.5 g/dl (6.4-8.2)
--- NOTE | 2018-05-28 09:21 | PN ---
Progress Note (short form) - Note Progress Note: Neurology History of Present Illness Mr Hernandez is an 88 y/o male with a history of HTN, HLD, CVA, CAD s/p PA s/p CABG and bilateral carotid endarterectomy presents to the ED due to recurrent falls, who presents to the ER via EMS due to chest pain. CP began at 8 Am on morning of admission, described as sharp, pressure, radiating to left arm, no associated jaw pain but has improved. I was consulted regarding confusion. During my evaluation, is awake, alert, cooperative, knows he's in the hospital and calls it [facility]. Knows name of President but had difficulty with date. Completed CT head which did not show any acute abnormalities. Discussed with primary, Dr. Roldan, not seen in his office in a few years. Baseline is some mild cognitive impairment but otherwise functional. States he's had poor PO intake and mostly consuming soft foods and fruits leading to diahrrea, per patient. Of note had slight white count of 12 but not but on Abx. UA negative, CXR negative. WBC count downtrending. No B12 or Folate deficency seen on labs. Per notes, family reported ongoing cognitive decline, worse here. MRI brain ordered and completed, awaiting official read. Has been started on Zyprexa by Psych. Overnight, notes indicate fall. CT head repeated and no acute changes. CT C spine also reviewed and DDD noted but without fractures or dislocation. Somnolent but arousable this AM, remains cooperative but fatigued. Allergies Allergy/AdvReac Type Severity Reaction Status Date / Time No Known Allergies Allergy Verified 11/14/14 10:31 Active Medications Amlodipine Besylate (Norvasc -) 10 mg PO DAILY [facility] Last Admin: 05/27/18 09:33 Dose: 10 mg Aspirin (Asa -) 81 mg PO DAILY [facility] Last Admin: 05/27/18 09:33 Dose: 81 mg Atenolol (Tenormin -) 100 mg PO DAILY [facility] Last Admin: 05/27/18 09:33 Dose: 100 mg Atorvastatin Calcium (Lipitor -) 80 mg PO HS [facility] Last Admin: 05/27/18 21:00 Dose: 80 mg Lisinopril (Prinivil) 40 mg PO DAILY [facility] Last Admin: 05/27/18 09:33 Dose: 40 mg Olanzapine (Zyprexa -) 5 mg PO HS [facility] Last Admin: 05/27/18 21:00 Dose: 5 mg *Physical Exam Vital Signs Temperature 98.2 F 05/28/18 05:31 Pulse Rate 88 05/28/18 05:31 Respiratory Rate 20 05/28/18 05:31 Blood Pressure 140/68 05/28/18 05:31 O2 Sat by Pulse Oximetry (%) 96 05/27/18 20:20 Gen: Awake, alert, responds to questions, knows place Card: RRR, nml S1,S2 Resp: Normal symmetric effort, lungs clear to auscultation Abdomen: Soft, nontender, bowel sounds active Musculoskeletal: Adequate range of motion without significant deformity Head atraumatic and normocephalic CN: PERRL, EOMI intact, no apparent facial droop, no abnormalities in facial sensation, palate elevates, uvula and tongue midline Motor: Full strength to confrontation in upper and lower extermities proximally and distally. Age related atrophy Sensory: Intact to Temperature, light touch, and pinprick in all extremities Coordination: Intact on [id number]-[id number] testing Gait: Deferred CBCD WBC 11.3 K/mm3 (4.0-10.0) H 05/28/18 05:30 RBC 4.25 M/mm3 (4.00-5.60) 05/28/18 05:30 Hgb 13.9 GM/dL (11.7-16.9) 05/28/18 05:30 Hct 41.3 % (35.4-49) 05/28/18 05:30 MCV 97.3 fl (80-96) H 05/28/18 05:30 MCHC 33.6 g/dl (32.0-35.9) 05/28/18 05:30 RDW 13.1 % (11.9-15.9) 05/28/18 05:30 Plt Count 220 K/MM3 (134-434) 05/28/18 05:30 MPV 9.1 fl (7.5-11.1) 05/28/18 05:30 CMP Sodium 137 mmol/L (136-145) 05/28/18 05:30 Potassium 4.3 mmol/L (3.5-5.1) 05/28/18 05:30 Chloride 103 mmol/L (98-107) 05/28/18 05:30 Carbon Dioxide 29 mmol/L (21-32) 05/28/18 05:30 Anion Gap 5 MMOL/L (8-16) L 05/28/18 05:30 BUN 25 mg/dL (7-18) H 05/28/18 05:30 Creatinine 1.1 mg/dL (0.55-1.3) 05/28/18 05:30 Creat Clearance w eGFR > 60 (>60) 05/28/18 05:30 Random Glucose 108 mg/dL (74-106) H 05/28/18 05:30 Calcium 9.0 mg/dL (8.5-10.1) 05/28/18 05:30 Total Bilirubin 0.5 mg/dL (0.2-1) 05/28/18 05:30 AST 34 U/L (15-37) 05/28/18 05:30 ALT 28 U/L (13-61) 05/28/18 05:30 Alkaline Phosphatase 97 U/L (45-117) 05/28/18 05:30 Total Protein 6.5 g/dl (6.4-8.2) 05/28/18 05:30 Albumin 3.0 g/dl (3.4-5.0) L 05/28/18 05:30 CARDIAC ENZYMES Creatine Kinase 103 IU/L (26-308) 05/26/18 21:45 Troponin I < 0.02 ng/ml (0.00-0.05) 05/26/18 21:45 Medical Decision Making 88 y/o male with a history of HTN, HLD, CVA, CAD s/p PA s/p CABG and bilateral carotid endarterectomy presents to the ED due to recurrent falls, who presents to the ER via EMS due to chest pain. CP began at 8 Am on morning of admission, described as sharp, pressure, radiating to left arm, no associated jaw pain but has improved. I was consulted regarding confusion. During my evaluation, is awake, alert, cooperative, knows he's in the hospital and calls it [facility]. Knows name of President but had difficulty with date, believed it to be October 2016. Completed CT head which did not show any acute abnormalities. Discussed with primary, Dr. Roldan, not seen in his office in a few years. Baseline is some mild cognitive impairment but reportedly with progressive cogitive decline. Has been started on Zyprexa by Psych. Overnight, notes indicate fall. CT head repeated and no acute changes. CT C spine also reviewed and DDD noted but without fractures or dislocation. Awaiting MRI report, on my prelim review, no CVA or acute changes noted. Do see significant atrophy consistent with chronic process with likely superimposed acute decline. Will add Aricept 5mg to regiment to see if provides any benefit, more so to prevent further decline. Maintain adequate hydration and PO intake. 1:1 at bedside, fall precautions discussed. Psych follow up if behavorial disturbance.
[2018-05-28] MEDS: ASPIRIN 81 MG CHEWABLE TABLETS PO SCH (10:36)
[2018-05-28] MEDS: DONEPEZIL HCL 5 MG TABLET (FP) PO SCH (10:40)
[2018-05-28] MEDS: ATENOLOL 50 MG TABLET (FP) PO SCH (10:54)
[2018-05-28] MEDS: amLODIPine BESYLATE 10 MG TABLET (FP) PO SCH (10:54)
[2018-05-28] MEDS: LISINOPRIL 20 MG TABLET (FP) PO SCH (10:54)
--- NOTE | 2018-05-28 10:57 | PN ---
Progress Note, Physician History of Present Illness: Atypical chest pain resolved, brain MRI showed no acute stroke, sustained fall off stretcher yesterday, imaging unrevealing. - Current Medication List Current Medications: Active Medications Amlodipine Besylate (Norvasc -) 10 mg PO DAILY [facility] Last Admin: 05/27/18 09:33 Dose: 10 mg Aspirin (Asa -) 81 mg PO DAILY [facility] Last Admin: 05/28/18 10:36 Dose: 81 mg Atenolol (Tenormin -) 100 mg PO DAILY [facility] Last Admin: 05/27/18 09:33 Dose: 100 mg Atorvastatin Calcium (Lipitor -) 80 mg PO HS [facility] Last Admin: 05/27/18 21:00 Dose: 80 mg Donepezil HCl (Aricept -) 5 mg PO DAILY [facility] Last Admin: 05/28/18 10:40 Dose: 5 mg Lisinopril (Prinivil) 40 mg PO DAILY [facility] Last Admin: 05/27/18 09:33 Dose: 40 mg Olanzapine (Zyprexa -) 5 mg PO [facility] Last Admin: 05/27/18 21:00 Dose: 5 mg - Objective Vital Signs: Vital Signs Temperature 98.2 F 05/28/18 05:31 Pulse Rate 88 05/28/18 05:31 Respiratory Rate 20 05/28/18 05:31 Blood Pressure 140/68 05/28/18 05:31 O2 Sat by Pulse Oximetry (%) 96 05/27/18 20:20 Constitutional: Yes: No Distress, Calm, Thin Neck: Yes: Supple Cardiovascular: Yes: Regular Rate and Rhythm Respiratory: Yes: Regular, Diminished Gastrointestinal: Yes: Normal Bowel Sounds, Soft Edema: No Labs: CBC, BMP 05/28/18 05:30 05/28/18 05:30 INR, PTT INR 1.08 (0.83-1.09) 05/24/18 09:50 Problem List - Problems (1) Atypical chest pain Code(s): R07.89 - OTHER CHEST PAIN (2) S/P CABG (coronary artery bypass graft) Code(s): Z95.1 - PRESENCE OF AORTOCORONARY BYPASS GRAFT (3) History of coronary artery stent placement Code(s): Z95.5 - PRESENCE OF CORONARY ANGIOPLASTY IMPLANT AND GRAFT (4) Coronary artery disease Code(s): I25.10 - ATHSCL HEART DISEASE OF [place] CORONARY ARTERY W/O ANG PCTRS Qualifiers: Coronary Disease-Associated Artery/Lesion type: [place] artery [place] vs. transplanted heart: [place] heart Associated angina: without angina Qualified Code(s): I25.10 - Atherosclerotic heart disease of [place] coronary artery without angina pectoris (5) Hyperlipidemia Code(s): E78.5 - HYPERLIPIDEMIA, UNSPECIFIED Qualifiers: Hyperlipidemia type: pure hypercholesterolemia Qualified Code(s): E78.00 - Pure hypercholesterolemia, unspecified; E78.0 - Pure hypercholesterolemia (6) Hypertensive cardiomyopathy Code(s): I11.9 - HYPERTENSIVE HEART DISEASE WITHOUT HEART FAILURE; I43 - CARDIOMYOPATHY IN DISEASES CLASSIFIED ELSEWHERE Qualifiers: Heart failure presence: without heart failure Qualified Code(s): I11.9 - Hypertensive heart disease without heart failure; I43 - Cardiomyopathy in diseases classified elsewhere (7) Diastolic dysfunction without heart failure Code(s): I51.89 - OTHER ILL-DEFINED HEART DISEASES Assessment/Plan Echo: January 29, 2017 Normal LV size and fxn, mild LAE 4.7 cm, mild-mod MR, mod TR RVSP 38 mmHg P-Myoview: November 21, 2015 No ischemia, LVEF 87% 1. Atypical chest pain resolved 2. CAD s/p PCI, CABG, angina pectoris 3. Diastolic dysfunction 4. HTN/HCVD 5. Type 2 DM 6. Hyperlipidemia 7. Cerebrovascular disease 8. Carotid stenosis s/p CEA 9. Dementia P:1. Ruled out for CA, GI evaluation appreciated 2. Continue Atenolol 100 qd, Lipitor 80 qhs, Zantac 150 bid, ASA 81 qd, Lotrel 10/40 qd 3. D/c telemetry 4. Neuro input appreciated, fall precautions
--- NOTE | 2018-05-28 11:04 | PN ---
Progress Note, Physician History of Present Illness: Pt on 1:1 observation Pt w/o RODRIGUEZ, back pain, shoulder pain, hip pain, extremities pain, motor weakness , sensory deficit. Pt w/o CP now. Pt w/o cg, SOB, palpitations, dizziness. Pt w/o nausea, vomiting, abd pain. Pt is noticed coughing - Current Medication List Current Medications: Active Medications Amlodipine Besylate (Norvasc -) 10 mg PO DAILY [facility] Last Admin: 05/28/18 10:54 Dose: 10 mg Aspirin (Asa -) 81 mg PO DAILY [facility] Last Admin: 05/28/18 10:36 Dose: 81 mg Atenolol (Tenormin -) 100 mg PO DAILY [facility] Last Admin: 05/28/18 10:54 Dose: 100 mg Atorvastatin Calcium (Lipitor -) 80 mg PO [facility] Last Admin: 05/27/18 21:00 Dose: 80 mg Donepezil HCl (Aricept -) 5 mg PO DAILY [facility] Last Admin: 05/28/18 10:40 Dose: 5 mg Lisinopril (Prinivil) 40 mg PO DAILY [facility] Last Admin: 05/28/18 10:54 Dose: 40 mg Olanzapine (Zyprexa -) 5 mg PO [facility] Last Admin: 05/27/18 21:00 Dose: 5 mg - Objective Vital Signs: Vital Signs Temperature 98.2 F 05/28/18 05:31 Pulse Rate 88 05/28/18 05:31 Respiratory Rate 20 05/28/18 05:31 Blood Pressure 140/68 05/28/18 05:31 O2 Sat by Pulse Oximetry (%) 96 05/27/18 20:20 Constitutional: Yes: No Distress, Calm Cardiovascular: Yes: Regular Rate and Rhythm, S1, S2 Respiratory: Yes: Regular, Rhonchi (at Right bases), Other (coarse) Gastrointestinal: Yes: Normal Bowel Sounds, Soft. No: Tenderness Edema: No Neurological: Yes: Alert, Oriented (to place) Labs: CBC, BMP 05/28/18 05:30 05/28/18 05:30 INR, PTT INR 1.08 (0.83-1.09) 05/24/18 09:50 Problem List - Problems (1) Chest pain Code(s): R07.9 - CHEST PAIN, UNSPECIFIED Qualifiers: Chest pain type: unspecified Qualified Code(s): R07.9 - Chest pain, unspecified (2) Diarrhea Code(s): R19.7 - DIARRHEA, UNSPECIFIED Qualifiers: Diarrhea type: unspecified type Qualified Code(s): R19.7 - Diarrhea, unspecified (3) Coronary artery disease Code(s): I25.10 - ATHSCL HEART DISEASE OF [place] CORONARY ARTERY W/O ANG PCTRS Qualifiers: Coronary Disease-Associated Artery/Lesion type: [place] artery [place] vs. transplanted heart: [place] heart Associated angina: without angina Qualified Code(s): I25.10 - Atherosclerotic heart disease of [place] coronary artery without angina pectoris (4) S/P CABG (coronary artery bypass graft) Code(s): Z95.1 - PRESENCE OF AORTOCORONARY BYPASS GRAFT (5) Diastolic dysfunction without heart failure Code(s): I51.89 - OTHER ILL-DEFINED HEART DISEASES (6) Hyperlipidemia Code(s): E78.5 - HYPERLIPIDEMIA, UNSPECIFIED Qualifiers: Hyperlipidemia type: pure hypercholesterolemia Qualified Code(s): E78.00 - Pure hypercholesterolemia, unspecified; E78.0 - Pure hypercholesterolemia (7) Shingles Code(s): B02.9 - ZOSTER WITHOUT COMPLICATIONS (8) Weakness generalized Code(s): R53.1 - WEAKNESS (9) Leukocytosis Code(s): D72.829 - ELEVATED WHITE BLOOD CELL COUNT, UNSPECIFIED (10) Anxiety Code(s): F41.9 - ANXIETY DISORDER, UNSPECIFIED (11) Confusion Code(s): R41.0 - DISORIENTATION, UNSPECIFIED (12) Swallowing difficulty Code(s): R13.10 - DYSPHAGIA, UNSPECIFIED (13) Fall Code(s): W19.XXXA - UNSPECIFIED FALL, INITIAL ENCOUNTER (14) Head trauma Code(s): S09.90XA - UNSPECIFIED INJURY OF HEAD, INITIAL ENCOUNTER Assessment/Plan Fall protocol 1:1 observation (Vest restrain until 1:1 is started) Repeat Head CT scan today To f/u with Psychiatry, Neurology. 05/24/2018 pt was admitted to monitor bed Serial CE- to monitor Cardio, GI, Neuro, Swallow, Psychiatry Consult are appreciated. AM labs
--- NOTE | 2018-05-28 16:13 | PN ---
GI Progress Note Subjective: GI NOte: No diarrhea since admission, in fact no BMs. He denies N/V, bloating or pain and has been eating well. - Objective Vital Signs: Vital Signs Temperature 97.4 F L 05/28/18 14:03 Pulse Rate 68 05/28/18 14:03 Respiratory Rate 18 05/28/18 14:03 Blood Pressure 138/66 05/28/18 14:03 O2 Sat by Pulse Oximetry (%) 96 05/28/18 09:00 CBC,CMP WBC 11.3 K/mm3 (4.0-10.0) H 05/28/18 05:30 RBC 4.25 M/mm3 (4.00-5.60) 05/28/18 05:30 Hgb 13.9 GM/dL (11.7-16.9) 05/28/18 05:30 Hct 41.3 % (35.4-49) 05/28/18 05:30 MCV 97.3 fl (80-96) H 05/28/18 05:30 MCH 32.7 pg (25.7-33.7) 05/28/18 05:30 MCHC 33.6 g/dl (32.0-35.9) 05/28/18 05:30 RDW 13.1 % (11.9-15.9) 05/28/18 05:30 Plt Count 220 K/MM3 (134-434) 05/28/18 05:30 MPV 9.1 fl (7.5-11.1) 05/28/18 05:30 Absolute Neuts (auto) 10.5 K/mm3 (1.5-8.0) H 05/24/18 09:50 Neutrophils % 84.4 % (42.8-82.8) H D 05/24/18 09:50 Lymphocytes % 6.9 % (8-40) L D 05/24/18 09:50 Monocytes % 8.1 % (3.8-10.2) 05/24/18 09:50 Eosinophils % 0.3 % (0-4.5) D 05/24/18 09:50 Basophils % 0.3 % (0-2.0) 05/24/18 09:50 Nucleated RBC % 0 % (0-0) 05/24/18 09:50 Sodium 137 mmol/L (136-145) 05/28/18 05:30 Potassium 4.3 mmol/L (3.5-5.1) 05/28/18 05:30 Chloride 103 mmol/L (98-107) 05/28/18 05:30 Carbon Dioxide 29 mmol/L (21-32) 05/28/18 05:30 Anion Gap 5 MMOL/L (8-16) L 05/28/18 05:30 BUN 25 mg/dL (7-18) H 05/28/18 05:30 Creatinine 1.1 mg/dL (0.55-1.3) 05/28/18 05:30 Creat Clearance w eGFR > 60 (>60) 05/28/18 05:30 Random Glucose 108 mg/dL (74-106) H 05/28/18 05:30 Calcium 9.0 mg/dL (8.5-10.1) 05/28/18 05:30 Magnesium 1.9 mg/dL (1.8-2.4) 05/25/18 05:30 Total Bilirubin 0.5 mg/dL (0.2-1) 05/28/18 05:30 AST 34 U/L (15-37) 05/28/18 05:30 ALT 28 U/L (13-61) 05/28/18 05:30 Alkaline Phosphatase 97 U/L (45-117) 05/28/18 05:30 Creatine Kinase 103 IU/L (26-308) 05/26/18 21:45 Creatine Kinase Index 3.5 % (0.0-5.0) 05/25/18 21:30 CK-MB (CK-2) 6.0 ng/mL (0.5-3.6) H 05/25/18 21:30 Troponin I < 0.02 ng/ml (0.00-0.05) 05/26/18 21:45 C-Reactive Protein 1.4 MG/DL (0.00-0.3) H 05/26/18 05:30 B-Natriuretic Peptide 327.4 pg/ml (5-450) 05/24/18 09:50 Total Protein 6.5 g/dl (6.4-8.2) 05/28/18 05:30 Albumin 3.0 g/dl (3.4-5.0) L 05/28/18 05:30 Lipase 311 U/L (73-393) 05/24/18 09:50 Vitamin B12 1434 pg/ml (193-986) H 05/25/18 21:30 Serum Folate 19 ng/mL (3.1-17.5) H 05/25/18 21:30 TSH 1.44 uIU/ml (0.358-3.74) D 05/26/18 05:30 Free T4 1.22 ng/dl (0.76-1.16) H 05/26/18 05:30 Constitutional: No Distress ...Auscultate: Yes: Normoactive Bowel Sounds ...Palpate: Yes: Soft, Other (nontender) ...Percussion: Yes: Tympanitic Labs: CBC, BMP 05/28/18 05:30 05/28/18 05:30 INR, PTT INR 1.08 (0.83-1.09) 05/24/18 09:50 Problem List - Problems (1) Diarrhea Assessment/Plan: The diarrhea apperas to be paradoxical and Steven is actually constipated . Will give Miralax. Code(s): R19.7 - DIARRHEA, UNSPECIFIED Qualifiers: Diarrhea type: unspecified type Qualified Code(s): R19.7 - Diarrhea, unspecified (2) History of adenomatous polyp of colon Code(s): Z86.010 - PERSONAL HISTORY OF COLONIC POLYPS (3) Diverticulosis Code(s): K57.90 - DVRTCLOS OF INTEST, PART UNSP, W/O PERF OR ABSCESS W/O BLEED (4) History of peptic ulcer Code(s): Z87.11 - PERSONAL HISTORY OF PEPTIC ULCER DISEASE (5) GERD (gastroesophageal reflux disease) Code(s): K21.9 - GASTRO-ESOPHAGEAL REFLUX DISEASE WITHOUT ESOPHAGITIS (6) Chest pain Code(s): R07.9 - CHEST PAIN, UNSPECIFIED Qualifiers: Chest pain type: unspecified Qualified Code(s): R07.9 - Chest pain, unspecified
[2018-05-28] MEDS ORDERED: FLU VACCINE QUAD 60 MCG/0.5 ML (MDV 18-19) IM ONE (17:18)
[2018-05-28] MEDS: POLYETHYLENE GLYCOL 3350 119 GM BTL PO SCH (21:03)
[2018-05-28] MEDS: ATORVASTATIN CA 80 MG TABLET (FP) PO SCH (21:03)
[2018-05-28] MEDS: OLANZapine 5 MG TABLET PO SCH (21:03)
[2018-05-29] MEDS: POLYETHYLENE GLYCOL 3350 119 GM BTL PO SCH ×2 (05:41→13:49)
[2018-05-29 08:21] LABS: HEMATOCRIT 38.2 % (35.4-49); HEMOGLOBIN 12.9 GM/dL (11.7-16.9); MCHC 33.8 g/dl (32.0-35.9); MEAN CELL VOLUME 97.7 fl (80-96); MEAN PLT VOLUME 9.2 fl (7.5-11.1); PLATELET COUNT 232 K/MM3 (134-434); RBC 3.91 M/mm3 (4.00-5.60); WHITE BLOOD COUNT 10.3 K/mm3 (4.0-10.0)
[2018-05-29 08:55] LABS: ANION GAP 8 MMOL/L (8-16); BLOOD UREA NITROGEN 28 mg/dL (7-18); CALCIUM 9.5 mg/dL (8.5-10.1); CHLORIDE 103 mmol/L (98-107); CO2 28 mmol/L (21-32); CREATININE 1.5 mg/dL (0.55-1.3); GLUCOSE,RANDOM 85 mg/dL (74-106); POTASSIUM 5.6 mmol/L (3.5-5.1); SODIUM 138 mmol/L (136-145)
[2018-05-29] MEDS: ASPIRIN 81 MG CHEWABLE TABLETS PO SCH (11:31)
[2018-05-29] MEDS: DONEPEZIL HCL 5 MG TABLET (FP) PO SCH (11:31)
--- NOTE | 2018-05-29 11:44 | PN ---
Progress Note, Physician Chief Complaint: Events noted History of Present Illness: Patient was seen and examined. Awake and alert. Chart was reviewed Denies chest pain or SOB - Current Medication List Current Medications: Active Medications Amlodipine Besylate (Norvasc -) 10 mg PO DAILY [facility] Last Admin: 05/28/18 10:54 Dose: 10 mg Aspirin (Asa -) 81 mg PO DAILY [facility] Last Admin: 05/29/18 11:31 Dose: 81 mg Atenolol (Tenormin -) 100 mg PO DAILY [facility] Last Admin: 05/28/18 10:54 Dose: 100 mg Atorvastatin Calcium (Lipitor -) 80 mg PO HS [facility] Last Admin: 05/28/18 21:03 Dose: 80 mg Donepezil HCl (Aricept -) 5 mg PO DAILY [facility] Last Admin: 05/29/18 11:31 Dose: 5 mg Lisinopril (Prinivil) 40 mg PO DAILY [facility] Last Admin: 05/28/18 10:54 Dose: 40 mg Olanzapine (Zyprexa -) 5 mg PO [facility] Last Admin: 05/28/18 21:03 Dose: 5 mg Polyethylene Glycol (Miralax (For Daily Use) -) 17 gm PO TID [facility] Last Admin: 05/29/18 05:41 Dose: 17 grams - Objective Vital Signs: Vital Signs Temperature 98.4 F 05/29/18 09:00 Pulse Rate 54 L 05/29/18 11:00 Respiratory Rate 18 05/29/18 11:00 Blood Pressure 95/50 L 05/29/18 11:00 O2 Sat by Pulse Oximetry (%) 96 05/28/18 21:00 Neck: Yes: Supple Cardiovascular: Yes: Regular Rate and Rhythm, S1, S2 Respiratory: Yes: CTA Bilaterally Gastrointestinal: Yes: Normal Bowel Sounds, Soft. No: Tenderness Edema: No Labs: CBC, BMP 05/29/18 06:30 05/29/18 06:30 Problem List - Problems (1) Atypical chest pain Code(s): R07.89 - OTHER CHEST PAIN (2) Coronary artery disease Code(s): I25.10 - ATHSCL HEART DISEASE OF [place] CORONARY ARTERY W/O ANG PCTRS Qualifiers: Coronary Disease-Associated Artery/Lesion type: [place] artery [place] vs. transplanted heart: [place] heart Associated angina: without angina Qualified Code(s): I25.10 - Atherosclerotic heart disease of [place] coronary artery without angina pectoris (3) Dementia Code(s): F03.90 - UNSPECIFIED DEMENTIA WITHOUT BEHAVIORAL DISTURBANCE (4) Diastolic dysfunction without heart failure Code(s): I51.89 - OTHER ILL-DEFINED HEART DISEASES (5) GERD (gastroesophageal reflux disease) Code(s): K21.9 - GASTRO-ESOPHAGEAL REFLUX DISEASE WITHOUT ESOPHAGITIS (6) History of coronary artery stent placement Code(s): Z95.5 - PRESENCE OF CORONARY ANGIOPLASTY IMPLANT AND GRAFT (7) Hyperlipidemia Code(s): E78.5 - HYPERLIPIDEMIA, UNSPECIFIED Qualifiers: Hyperlipidemia type: pure hypercholesterolemia Qualified Code(s): E78.00 - Pure hypercholesterolemia, unspecified; E78.0 - Pure hypercholesterolemia (8) S/P CABG (coronary artery bypass graft) Code(s): Z95.1 - PRESENCE OF AORTOCORONARY BYPASS GRAFT Assessment/Plan 1. Atypical chest pain 2. CAD s/p PCI, CABG, angina pectoris 3. Diastolic dysfunction 4. HTN/HCVD 5. Type 2 DM 6. Hyperlipidemia 7. Cerebrovascular disease 8. Carotid stenosis s/p CEA 9. Dementia PLAN: 1. Continue Atenolol 100 qd, Lipitor 80 qhs, ASA 81 qd and Lotrel 10/40 qd Present therapy Shawn García MD
[2018-05-29] MEDS: amLODIPine BESYLATE 10 MG TABLET (FP) PO SCH (11:58)
[2018-05-29] MEDS: LISINOPRIL 20 MG TABLET (FP) PO SCH (11:58)
[2018-05-29] MEDS: ATENOLOL 50 MG TABLET (FP) PO SCH (11:59)
--- NOTE | 2018-05-29 15:22 | PN ---
Progress Note, Physician History of Present Illness: Pt on 1:1 observation Pt w/o RODRIGUEZ, back pain, shoulder pain, hip pain, extremities pain, motor weakness , sensory deficit. Pt w/o CP, cg, SOB, palpitations, dizziness. Pt w/o nausea, vomiting, abd pain. Pt feels thirsty, when was asked - Current Medication List Current Medications: Active Medications Amlodipine Besylate (Norvasc -) 10 mg PO DAILY REPLACED BY [facility] Last Admin: 05/29/18 11:58 Dose: Not Given Aspirin (Asa -) 81 mg PO DAILY REPLACED BY [facility] Last Admin: 05/29/18 11:31 Dose: 81 mg Atenolol (Tenormin -) 100 mg PO DAILY REPLACED BY [facility] Atorvastatin Calcium (Lipitor -) 80 mg PO HS REPLACED BY [facility] Last Admin: 05/28/18 21:03 Dose: 80 mg Donepezil HCl (Aricept -) 5 mg PO DAILY [facility]ED [facility] Last Admin: 05/29/18 11:31 Dose: 5 mg Sodium Chloride (Normal Saline -) 1,000 mls @ 50 mls/hr IV ASDIR REPLACED BY [facility] Stop: 05/30/18 11:29 Olanzapine (Zyprexa -) 5 mg PO HS REPLACED BY [facility] Last Admin: 05/28/18 21:03 Dose: 5 mg Polyethylene Glycol (Miralax (For Daily Use) -) 17 gm PO TID REPLACED BY [facility] Last Admin: 05/29/18 13:49 Dose: Not Given - Objective Vital Signs: Vital Signs Temperature 98.4 F 05/29/18 09:00 Pulse Rate 54 L 05/29/18 11:00 Respiratory Rate 18 05/29/18 11:00 Blood Pressure 95/50 L 05/29/18 11:00 O2 Sat by Pulse Oximetry (%) 96 05/28/18 21:00 Constitutional: Yes: No Distress, Calm Cardiovascular: Yes: Regular Rate and Rhythm, S1, S2 Respiratory: Yes: Regular, CTA Bilaterally, Other (coarse BS at bases) Gastrointestinal: Yes: Normal Bowel Sounds, Soft. No: Tenderness Edema: No Neurological: Yes: Alert, Oriented Labs: CBC, BMP 05/29/18 06:30 05/29/18 06:30 INR, PTT INR 1.08 (0.83-1.09) 05/24/18 09:50 - ....Imaging Chest X-ray: Report Reviewed Problem List - Problems (1) Chest pain Code(s): R07.9 - CHEST PAIN, UNSPECIFIED Qualifiers: Chest pain type: unspecified Qualified Code(s): R07.9 - Chest pain, unspecified (2) Diarrhea Code(s): R19.7 - DIARRHEA, UNSPECIFIED Qualifiers: Diarrhea type: unspecified type Qualified Code(s): R19.7 - Diarrhea, unspecified (3) Coronary artery disease Code(s): I25.10 - ATHSCL HEART DISEASE OF [place] CORONARY ARTERY W/O ANG PCTRS Qualifiers: Coronary Disease-Associated Artery/Lesion type: [place] artery [place] vs. transplanted heart: [place] heart Associated angina: without angina Qualified Code(s): I25.10 - Atherosclerotic heart disease of [place] coronary artery without angina pectoris (4) S/P CABG (coronary artery bypass graft) Code(s): Z95.1 - PRESENCE OF AORTOCORONARY BYPASS GRAFT (5) Diastolic dysfunction without heart failure Code(s): I51.89 - OTHER ILL-DEFINED HEART DISEASES (6) Hyperlipidemia Code(s): E78.5 - HYPERLIPIDEMIA, UNSPECIFIED Qualifiers: Hyperlipidemia type: pure hypercholesterolemia Qualified Code(s): E78.00 - Pure hypercholesterolemia, unspecified; E78.0 - Pure hypercholesterolemia (7) Shingles Code(s): B02.9 - ZOSTER WITHOUT COMPLICATIONS (8) Weakness generalized Code(s): R53.1 - WEAKNESS (9) Leukocytosis Code(s): D72.829 - ELEVATED WHITE BLOOD CELL COUNT, UNSPECIFIED (10) Anxiety Code(s): F41.9 - ANXIETY DISORDER, UNSPECIFIED (11) Confusion Code(s): R41.0 - DISORIENTATION, UNSPECIFIED (12) Swallowing difficulty Code(s): R13.10 - DYSPHAGIA, UNSPECIFIED (13) Fall Code(s): W19.XXXA - UNSPECIFIED FALL, INITIAL ENCOUNTER (14) Head trauma Code(s): S09.90XA - UNSPECIFIED INJURY OF HEAD, INITIAL ENCOUNTER (15) Hyperkalemia Code(s): E87.5 - HYPERKALEMIA (16) Constipation Code(s): K59.00 - CONSTIPATION, UNSPECIFIED Assessment/Plan anti-HTN medications are readjusted, today, secondary to low BP today Pt to receive Kayaxalate today; to hold Miralax today. Low rate hydration Repeate CXR today for f/u (per yesterday report) Fall protocol 1:1 observation (Vest restrain until 1:1 is started) Repeated Head CT scan is negative for acute event To f/u with Psychiatry, Neurology. 05/24/2018 pt was admitted to monitor bed Serial CE- were negative Cardio, GI, Neuro, Swallow, Psychiatry Consult are appreciated. AM labs
[2018-05-29] MEDS ORDERED: SODIUM CHLORIDE 1,000 ML IV SCH (15:30)
[2018-05-29] MEDS ORDERED: SODIUM POLYSTYRENE SULFONATE 15 GM/60 ML BOTTLE PO SCH (16:00)
[2018-05-29] MEDS ORDERED: SODIUM POLYSTYRENE SULFONATE 15 GM/60 ML BOTTLE PO ONE (17:30)
[2018-05-29] MEDS: OLANZapine 5 MG TABLET PO SCH (22:21)
[2018-05-29] MEDS: ATORVASTATIN CA 80 MG TABLET (FP) PO SCH (22:21)
[2018-05-30 08:05] LABS: HEMATOCRIT 35.8 % (35.4-49); HEMOGLOBIN 12.2 GM/dL (11.7-16.9); MCH 33.1 pg (25.7-33.7); MCHC 34.1 g/dl (32.0-35.9); MEAN PLT VOLUME 8.8 fl (7.5-11.1); PLATELET COUNT 215 K/MM3 (134-434); RBC 3.69 M/mm3 (4.00-5.60); RDW 13.3 % (11.9-15.9)
[2018-05-30 09:10] LABS: ANION GAP 8 MMOL/L (8-16); BLOOD UREA NITROGEN 29 mg/dL (7-18); CALCIUM 8.7 mg/dL (8.5-10.1); CHLORIDE 106 mmol/L (98-107); CO2 26 mmol/L (21-32); CREATININE 1.2 mg/dL (0.55-1.3); GLUCOSE,RANDOM 86 mg/dL (74-106); POTASSIUM 4.6 mmol/L (3.5-5.1); SODIUM 141 mmol/L (136-145)
[2018-05-30] MEDS: ASPIRIN 81 MG CHEWABLE TABLETS PO SCH (09:47)
[2018-05-30] MEDS: ATENOLOL 50 MG TABLET (FP) PO SCH (09:48)
[2018-05-30] MEDS: DONEPEZIL HCL 5 MG TABLET (FP) PO SCH (09:49)
--- NOTE | 2018-05-30 15:19 | PN ---
Progress Note, Physician History of Present Illness: Pt with his . Pt w/o RODRIGUEZ, back pain, shoulder pain, hip pain, extremities pain, motor weakness , sensory deficit. Pt w/o CP, cg, SOB, palpitations, dizziness. Pt w/o nausea, vomiting, abd pain. Pt is c/o weakness, gradually decline, not able to walk at home more than few steps. - Current Medication List Current Medications: Active Medications Aspirin (Asa -) 81 mg PO DAILY [facility] Last Admin: 05/30/18 09:47 Dose: 81 mg Atenolol (Tenormin -) 100 mg PO DAILY [facility] Last Admin: 05/30/18 09:48 Dose: Not Given Atorvastatin Calcium (Lipitor -) 80 mg PO [facility] Last Admin: 05/29/18 22:21 Dose: 80 mg Donepezil HCl (Aricept -) 5 mg PO DAILY [facility] Last Admin: 05/30/18 09:49 Dose: 5 mg Olanzapine (Zyprexa -) 5 mg PO [facility] Last Admin: 05/29/18 22:21 Dose: 5 mg - Objective Vital Signs: Vital Signs Temperature 97.6 F 05/30/18 13:56 Pulse Rate 69 05/30/18 13:56 Respiratory Rate 18 05/30/18 13:56 Blood Pressure 105/49 L 05/30/18 13:56 O2 Sat by Pulse Oximetry (%) 95 05/30/18 09:00 Constitutional: Yes: No Distress, Calm Cardiovascular: Yes: Regular Rate and Rhythm, S1, S2 Respiratory: Yes: Regular, CTA Bilaterally Gastrointestinal: Yes: Normal Bowel Sounds, Soft. No: Tenderness Edema: No Neurological: Yes: Alert, Oriented (to person, place) Labs: CBC, BMP 05/30/18 06:25 05/30/18 06:25 INR, PTT INR 1.08 (0.83-1.09) 05/24/18 09:50 Problem List - Problems (1) Chest pain Code(s): R07.9 - CHEST PAIN, UNSPECIFIED Qualifiers: Chest pain type: unspecified Qualified Code(s): R07.9 - Chest pain, unspecified (2) Diarrhea Code(s): R19.7 - DIARRHEA, UNSPECIFIED Qualifiers: Diarrhea type: unspecified type Qualified Code(s): R19.7 - Diarrhea, unspecified (3) Coronary artery disease Code(s): I25.10 - ATHSCL HEART DISEASE OF [place] CORONARY ARTERY W/O ANG PCTRS Qualifiers: Coronary Disease-Associated Artery/Lesion type: [place] artery [place] vs. transplanted heart: [place] heart Associated angina: without angina Qualified Code(s): I25.10 - Atherosclerotic heart disease of [place] coronary artery without angina pectoris (4) S/P CABG (coronary artery bypass graft) Code(s): Z95.1 - PRESENCE OF AORTOCORONARY BYPASS GRAFT (5) Diastolic dysfunction without heart failure Code(s): I51.89 - OTHER ILL-DEFINED HEART DISEASES (6) Hyperlipidemia Code(s): E78.5 - HYPERLIPIDEMIA, UNSPECIFIED Qualifiers: Hyperlipidemia type: pure hypercholesterolemia Qualified Code(s): E78.00 - Pure hypercholesterolemia, unspecified; E78.0 - Pure hypercholesterolemia (7) Shingles Code(s): B02.9 - [place] WITHOUT COMPLICATIONS (8) Weakness generalized Code(s): R53.1 - WEAKNESS (9) Leukocytosis Code(s): D72.829 - ELEVATED WHITE BLOOD CELL COUNT, UNSPECIFIED (10) Anxiety Code(s): F41.9 - ANXIETY DISORDER, UNSPECIFIED (11) Confusion Code(s): R41.0 - DISORIENTATION, UNSPECIFIED (12) Swallowing difficulty Code(s): R13.10 - DYSPHAGIA, UNSPECIFIED (13) Fall Code(s): W19.XXXA - UNSPECIFIED FALL, INITIAL ENCOUNTER (14) Head trauma Code(s): S09.90XA - UNSPECIFIED INJURY OF HEAD, INITIAL ENCOUNTER (15) Hyperkalemia Code(s): E87.5 - HYPERKALEMIA (16) Constipation Code(s): K59.00 - CONSTIPATION, UNSPECIFIED (17) Physical deconditioning Code(s): R53.81 - OTHER MALAISE (18) Hypoalbuminemia Assessment/Plan: operations forester consult Code(s): E88.09 - OT DISORDERS OF PLASMA-PROTEIN METABOLISM, NEC Assessment/Plan Pt was a sitter; pt clinically is better today. To f/u with Psychiatry, Neurology. Pt's condition imaging tests reports were reviewd with pt and his , all questions were answered; disposition was reviewed with his -she will talk with SW in AM 05/24/2018 pt was admitted to monitor bed; serial CE were negative; cardiac etiology was R/O; pt was transfered to medical floor. Cardio, GI, Neuro, Swallow, Psychiatry Consult are appreciated. PT in AM
[2018-05-30] MEDS: ATORVASTATIN CA 80 MG TABLET (FP) PO SCH (21:43)
[2018-05-30] MEDS: OLANZapine 5 MG TABLET PO SCH (21:43)
[2018-05-31 09:20] LABS: HEMATOCRIT 35.5 % (35.4-49); MCH 32.9 pg (25.7-33.7); MCHC 33.8 g/dl (32.0-35.9); MEAN CELL VOLUME 97.3 fl (80-96); MEAN PLT VOLUME 8.6 fl (7.5-11.1); PLATELET COUNT 215 K/MM3 (134-434); RBC 3.64 M/mm3 (4.00-5.60); RDW 13.6 % (11.9-15.9); WHITE BLOOD COUNT 10.4 K/mm3 (4.0-10.0)
--- NOTE | 2018-05-31 09:28 | PN ---
Progress Note (short form) - Note Progress Note: Neurology History of Present Illness Mr Hernandez is an 88 y/o male with a history of HTN, HLD, CVA, CAD s/p ID s/p CABG and bilateral carotid endarterectomy presents to the ED due to recurrent falls, who presents to the ER via EMS due to chest pain. CP began at 8 Am on morning of admission, described as sharp, pressure, radiating to left arm, no associated jaw pain but has improved. I was consulted regarding confusion. During my evaluation, is awake, alert, cooperative, knows he's in the hospital and calls it [facility]. Knows name of President but had difficulty with date. Completed CT head which did not show any acute abnormalities. Discussed with primary, Dr. Roldan, not seen in his office in a few years. Baseline is some mild cognitive impairment but otherwise functional. States he's had poor PO intake and mostly consuming soft foods and fruits leading to diahrrea, per patient. Of note had slight white count of 12 but not but on Abx. UA negative, CXR negative. WBC count downtrended. No B12 or Folate deficency seen on labs. Per notes, family reported ongoing cognitive decline, worse here. MRI brain ordered and completed, no acute changes. Had been started on Zyprexa by Psych. CT head had been repeated due to fall. CT C spine also reviewed and DDD noted but without fractures or dislocation. More awake, and alert this AM. Knows he's in hospital and can tell me he's at [facility]. Knows name of President. Active Medications Aspirin (Asa -) 81 mg PO DAILY [facility] Last Admin: 05/30/18 09:47 Dose: 81 mg Atenolol (Tenormin -) 100 mg PO DAILY [facility] Last Admin: 05/30/18 09:48 Dose: Not Given Atorvastatin Calcium (Lipitor -) 80 mg PO HS [facility] Last Admin: 05/30/18 21:43 Dose: 80 mg Donepezil HCl (Aricept -) 5 mg PO DAILY [facility] Last Admin: 05/30/18 09:49 Dose: 5 mg Olanzapine (Zyprexa -) 5 mg PO HS [facility] Last Admin: 05/30/18 21:43 Dose: 5 mg Polyethylene Glycol (Miralax (For Daily Use) -) 17 gm PO DAILY [facility] *Physical Exam Vital Signs Period Temp Pulse Resp BP Sys/Tatum Pulse Ox Last 24 Hr 97.6 F-99.5 F 69-96 18-20 97-113/49-57 Gen: Awake, alert, responds to questions, knows place Card: RRR, nml S1,S2 Resp: Normal symmetric effort, lungs clear to auscultation Abdomen: Soft, nontender, bowel sounds active Musculoskeletal: Adequate range of motion without significant deformity Head atraumatic and normocephalic CN: PERRL, EOMI intact, no apparent facial droop, no abnormalities in facial sensation, palate elevates, uvula and tongue midline Motor: Full strength to confrontation in upper and lower extermities proximally and distally. Age related atrophy Sensory: Intact to Temperature, light touch, and pinprick in all extremities Coordination: Intact on [id number] testing Gait: Deferred CBCD WBC 10.4 K/mm3 (4.0-10.0) H 05/31/18 08:58 RBC 3.64 M/mm3 (4.00-5.60) L 05/31/18 08:58 Hgb 12.0 GM/dL (11.7-16.9) 05/31/18 08:58 Hct 35.5 % (35.4-49) 05/31/18 08:58 MCV 97.3 fl (80-96) H 05/31/18 08:58 MCHC 33.8 g/dl (32.0-35.9) 05/31/18 08:58 RDW 13.6 % (11.9-15.9) 05/31/18 08:58 Plt Count 215 K/MM3 (134-434) 05/31/18 08:58 MPV 8.6 fl (7.5-11.1) 05/31/18 08:58 CMP Sodium 141 mmol/L (136-145) 05/30/18 06:25 Potassium 4.6 mmol/L (3.5-5.1) 05/30/18 06:25 Chloride 106 mmol/L (98-107) 05/30/18 06:25 Carbon Dioxide 26 mmol/L (21-32) 05/30/18 06:25 Anion Gap 8 MMOL/L (8-16) 05/30/18 06:25 BUN 29 mg/dL (7-18) H 05/30/18 06:25 Creatinine 1.2 mg/dL (0.55-1.3) 05/30/18 06:25 Creat Clearance w eGFR 57.01 (>60) 05/30/18 06:25 Random Glucose 86 mg/dL (74-106) 05/30/18 06:25 Calcium 8.7 mg/dL (8.5-10.1) 05/30/18 06:25 Total Bilirubin 0.5 mg/dL (0.2-1) 05/28/18 05:30 AST 34 U/L (15-37) 05/28/18 05:30 ALT 28 U/L (13-61) 05/28/18 05:30 Alkaline Phosphatase 97 U/L (45-117) 05/28/18 05:30 Total Protein 6.5 g/dl (6.4-8.2) 05/28/18 05:30 Albumin 3.0 g/dl (3.4-5.0) L 05/28/18 05:30 CARDIAC ENZYMES Creatine Kinase 103 IU/L (26-308) 05/26/18 21:45 Troponin I < 0.02 ng/ml (0.00-0.05) 05/26/18 21:45 Medical Decision Making 88 y/o male with a history of HTN, HLD, CVA, CAD s/p ID s/p CABG and bilateral carotid endarterectomy presents to the ED due to recurrent falls, who presents to the ER via EMS due to chest pain. CP began at 8 Am on morning of admission, described as sharp, pressure, radiating to left arm, no associated jaw pain but has improved. I was consulted regarding confusion. During my evaluation, is awake, alert, cooperative, knows he's in the hospital and calls it [facility]. Knows name of President but had difficulty with date, believed it to be October 2016. Completed CT head which did not show any acute abnormalities. Discussed with primary, Dr. Roldan, not seen in his office in a few years. Baseline is some mild cognitive impairment but reportedly with progressive cogitive decline. Has been started on Zyprexa by Psych. Ct head, C spine, MRI brain as above. On Aricept 5mg and appears to have stabilized, started to prevent further decline. Maintain adequate hydration and PO intake. 1:1 at bedside, fall precautions discussed. Psych follow up if behavorial disturbance. Outpatient follow up for re-evaluation and possible formal memory testing.
[2018-05-31] MEDS: DONEPEZIL HCL 5 MG TABLET (FP) PO SCH (10:36)
[2018-05-31] MEDS: ASPIRIN 81 MG CHEWABLE TABLETS PO SCH (10:36)
[2018-05-31] MEDS: POLYETHYLENE GLYCOL 3350 119 GM BTL PO SCH (10:37)
[2018-05-31] MEDS: ATENOLOL 50 MG TABLET (FP) PO SCH (10:38)
[2018-05-31 10:47] LABS: ALBUMIN 2.5 g/dl (3.4-5.0); ALK PHOS 79 U/L (45-117); ANION GAP 5 MMOL/L (8-16); BILIRUBIN,TOTAL 0.5 mg/dL (0.2-1); BLOOD UREA NITROGEN 26 mg/dL (7-18); CALCIUM 8.7 mg/dL (8.5-10.1); CHLORIDE 106 mmol/L (98-107); CO2 27 mmol/L (21-32); CREATININE 1.1 mg/dL (0.55-1.3); GLUCOSE,RANDOM 101 mg/dL (74-106); POTASSIUM 4.4 mmol/L (3.5-5.1); SGOT/AST 22 U/L (15-37); SGPT/ALT 25 U/L (13-61); SODIUM 138 mmol/L (136-145); TOT PROT 5.6 g/dl (6.4-8.2)
--- NOTE | 2018-05-31 15:00 | PN ---
Progress Note (short form) - Note Progress Note: Patient seen with . appears, alert oriented and calmer . Not psychotic or depressed. Plan> d/c1:1. discharge Home.
--- NOTE | 2018-05-31 15:49 | PN ---
Progress Note, Physician History of Present Illness: Atypical chest pain resolved, brain MRI showed no acute stroke, tolerating PT. - Current Medication List Current Medications: Active Medications Aspirin (Asa -) 81 mg PO DAILY [facility] Last Admin: 05/31/18 10:36 Dose: 81 mg Atenolol (Tenormin -) 100 mg PO DAILY [facility] Last Admin: 05/31/18 10:38 Dose: 100 mg Atorvastatin Calcium (Lipitor -) 80 mg PO HS [facility] Last Admin: 05/30/18 21:43 Dose: 80 mg Donepezil HCl (Aricept -) 5 mg PO DAILY [facility] Last Admin: 05/31/18 10:36 Dose: 5 mg Olanzapine (Zyprexa -) 5 mg PO HS [facility] Last Admin: 05/30/18 21:43 Dose: 5 mg Polyethylene Glycol (Miralax (For Daily Use) -) 17 gm PO DAILY [facility] Last Admin: 05/31/18 10:37 Dose: 17 gm - Objective Vital Signs: Vital Signs Temperature 97.7 F 05/31/18 10:00 Pulse Rate 78 05/31/18 10:00 Respiratory Rate 18 05/31/18 10:00 Blood Pressure 138/69 05/31/18 10:00 O2 Sat by Pulse Oximetry (%) 95 05/30/18 09:00 Constitutional: Yes: No Distress, Calm, Thin Neck: Yes: Supple Cardiovascular: Yes: Regular Rate and Rhythm Respiratory: Yes: Regular, CTA Bilaterally Gastrointestinal: Yes: Normal Bowel Sounds, Soft Edema: No Labs: CBC, BMP 05/31/18 08:58 05/31/18 08:58 INR, PTT INR 1.08 (0.83-1.09) 05/24/18 09:50 - ....Imaging Chest X-ray: Report Reviewed (NAD) Problem List - Problems (1) Atypical chest pain Code(s): R07.89 - OTHER CHEST PAIN (2) S/P CABG (coronary artery bypass graft) Code(s): Z95.1 - PRESENCE OF AORTOCORONARY BYPASS GRAFT (3) History of coronary artery stent placement Code(s): Z95.5 - PRESENCE OF CORONARY ANGIOPLASTY IMPLANT AND GRAFT (4) Coronary artery disease Code(s): I25.10 - ATHSCL HEART DISEASE OF [place] CORONARY ARTERY W/O ANG PCTRS Qualifiers: Coronary Disease-Associated Artery/Lesion type: [place] artery [place] vs. transplanted heart: [place] heart Associated angina: without angina Qualified Code(s): I25.10 - Atherosclerotic heart disease of [place] coronary artery without angina pectoris (5) Hyperlipidemia Code(s): E78.5 - HYPERLIPIDEMIA, UNSPECIFIED Qualifiers: Hyperlipidemia type: pure hypercholesterolemia Qualified Code(s): E78.00 - Pure hypercholesterolemia, unspecified; E78.0 - Pure hypercholesterolemia (6) Hypertensive cardiomyopathy Code(s): I11.9 - HYPERTENSIVE HEART DISEASE WITHOUT HEART FAILURE; I43 - CARDIOMYOPATHY IN DISEASES CLASSIFIED ELSEWHERE Qualifiers: Heart failure presence: without heart failure Qualified Code(s): I11.9 - Hypertensive heart disease without heart failure; I43 - Cardiomyopathy in diseases classified elsewhere (7) Diastolic dysfunction without heart failure Code(s): I51.89 - OTHER ILL-DEFINED HEART DISEASES Assessment/Plan Echo: January 29, 2017 Normal LV size and fxn, mild LAE 4.7 cm, mild-mod MR, mod TR RVSP 38 mmHg P-Myoview: November 21, 2015 No ischemia, LVEF 87% 1. Atypical chest pain resolved 2. CAD s/p PCI, CABG, angina pectoris 3. Diastolic dysfunction 4. HTN/HCVD 5. Type 2 DM 6. Hyperlipidemia 7. Cerebrovascular disease 8. Carotid stenosis s/p CEA 9. Dementia P:1. Ruled out for [place], GI evaluation appreciated 2. Continue Atenolol 100 qd, Lipitor 80 qhs, Zantac 150 bid, ASA 81 qd 3. Neuro input appreciated, fall precautions, PT as tolerated
--- NOTE | 2018-05-31 20:17 | PN ---
Progress Note, Physician History of Present Illness: Pt was seen in AM, assistant in nursing at bedside. Pt is calm, oriented to place, president of [facility]; pt is no oriented to date, states that date has no importance to him and doesn't keep up with it. Pt w/o CP now. Pt w/o SOB, palpitations, dizziness. Pt w/o nausea, vomiting, abd pain. - Current Medication List Current Medications: Active Medications Aspirin (Asa -) 81 mg PO DAILY [facility] Last Admin: 05/31/18 10:36 Dose: 81 mg Atenolol (Tenormin -) 100 mg PO DAILY [facility] Last Admin: 05/31/18 10:38 Dose: 100 mg Atorvastatin Calcium (Lipitor -) 80 mg PO HS [facility] Last Admin: 05/30/18 21:43 Dose: 80 mg Donepezil HCl (Aricept -) 5 mg PO DAILY [facility] Last Admin: 05/31/18 10:36 Dose: 5 mg Olanzapine (Zyprexa -) 5 mg PO HS [facility] Last Admin: 05/30/18 21:43 Dose: 5 mg Polyethylene Glycol (Miralax (For Daily Use) -) 17 gm PO DAILY [facility] Last Admin: 05/31/18 10:37 Dose: 17 gm - Objective Vital Signs: Vital Signs Temperature 98.7 F 05/31/18 14:48 Pulse Rate 84 05/31/18 14:48 Respiratory Rate 18 05/31/18 14:48 Blood Pressure 114/47 L 05/31/18 14:48 O2 Sat by Pulse Oximetry (%) 94 L 05/31/18 09:00 Constitutional: Yes: No Distress, Calm Cardiovascular: Yes: Regular Rate and Rhythm, S1, S2 Respiratory: Yes: Regular, CTA Bilaterally, Other (coarse BS bilat.) Gastrointestinal: Yes: Normal Bowel Sounds, Soft. No: Tenderness Edema: No Neurological: Yes: Alert, Oriented Labs: CBC, BMP 05/31/18 08:58 05/31/18 08:58 INR, PTT INR 1.08 (0.83-1.09) 05/24/18 09:50 Problem List - Problems (1) Chest pain Code(s): R07.9 - CHEST PAIN, UNSPECIFIED Qualifiers: Chest pain type: unspecified Qualified Code(s): R07.9 - Chest pain, unspecified (2) Diarrhea Code(s): R19.7 - DIARRHE[place], UNSPECIFIED Qualifiers: Diarrhea type: unspecified type Qualified Code(s): R19.7 - Diarrhea, unspecified (3) Coronary artery disease Code(s): I25.10 - ATHSCL HEART DISEASE OF [place] CORONARY ARTERY W/O ANG PCTRS Qualifiers: Coronary Disease-Associated Artery/Lesion type: [place] artery [place] vs. transplanted heart: [place] heart Associated angina: without angina Qualified Code(s): I25.10 - Atherosclerotic heart disease of [place] coronary artery without angina pectoris (4) S/P CABG (coronary artery bypass graft) Code(s): Z95.1 - PRESENCE OF AORTOCORONARY BYPASS GRAFT (5) Diastolic dysfunction without heart failure Code(s): I51.89 - OTHER ILL-DEFINED HEART DISEASES (6) Hyperlipidemia Code(s): E78.5 - HYPERLIPIDEMIA, UNSPECIFIED Qualifiers: Hyperlipidemia type: pure hypercholesterolemia Qualified Code(s): E78.00 - Pure hypercholesterolemia, unspecified; E78.0 - Pure hypercholesterolemia (7) Shingles Code(s): B02.9 - [place] WITHOUT COMPLICATIONS (8) Weakness generalized Code(s): R53.1 - WEAKNESS (9) Leukocytosis Code(s): D72.829 - ELEVATED WHITE BLOOD CELL COUNT, UNSPECIFIED (10) Anxiety Code(s): F41.9 - ANXIETY DISORDER, UNSPECIFIED (11) Confusion Code(s): R41.0 - DISORIENTATION, UNSPECIFIED (12) Swallowing difficulty Code(s): R13.10 - DYSPHAGIA, UNSPECIFIED (13) Fall Code(s): W19.XXXA - UNSPECIFIED FALL, INITIAL ENCOUNTER (14) Head trauma Code(s): S09.90XA - UNSPECIFIED INJURY OF HEAD, INITIAL ENCOUNTER Assessment/Plan Fall protocol 1:1 observation PT to reevaluate pt. Resume Miralax. To f/u with Psychiatry, Neurology regarding pt's confusion and dementia. 05/24/2018 pt was admitted to monitor bed Serial CE- to monitor Cardio, GI, Neuro, Swallow, Psychiatry Consults are appreciated. AM labs DC planning -pt's aware of our plan to DC pt in the next 1-2 days.
[2018-05-31] MEDS: ATORVASTATIN CA 80 MG TABLET (FP) PO SCH (21:15)
[2018-05-31] MEDS: OLANZapine 5 MG TABLET PO SCH (21:15)
[2018-06-01 08:29] LABS: ANION GAP 4 MMOL/L (8-16); BLOOD UREA NITROGEN 33 mg/dL (7-18); CALCIUM 8.5 mg/dL (8.5-10.1); CHLORIDE 104 mmol/L (98-107); CO2 31 mmol/L (21-32); CREATININE 1.2 mg/dL (0.55-1.3); GLUCOSE,RANDOM 101 mg/dL (74-106); POTASSIUM 4.9 mmol/L (3.5-5.1); SODIUM 139 mmol/L (136-145)
--- NOTE | 2018-06-01 09:26 | PN ---
Progress Note (short form) - Note Progress Note: Neurology History of Present Illness Mr Hernandez is an 88 y/o male with a history of HTN, HLD, CVA, CAD s/p IN s/p CABG and bilateral carotid endarterectomy presents to the ED due to recurrent falls, who presents to the ER via EMS due to chest pain. CP began at 8 Am on morning of admission, described as sharp, pressure, radiating to left arm, no associated jaw pain but has improved. I was consulted regarding confusion. During my evaluation, is awake, alert, cooperative, knows he's in the hospital and calls it [facility]. Knows name of President but had difficulty with date. Completed CT head which did not show any acute abnormalities. Discussed with primary, Dr. Roldan, not seen in his office in a few years. Baseline is some mild cognitive impairment but otherwise functional. States he's had poor PO intake and mostly consuming soft foods and fruits leading to diahrrea, per patient. Of note had slight white count of 12 but not but on Abx. UA negative, CXR negative. WBC count downtrended. No B12 or Folate deficency seen on labs. Per notes, family reported ongoing cognitive decline, worse here. MRI brain ordered and completed, no acute changes. Had been started on Zyprexa by Psych. CT head had been repeated due to fall. CT C spine also reviewed and DDD noted but without fractures or dislocation. More awake, and alert this AM. Knows he's in hospital and can tell me he's at [facility]. Knows name of President. Still unsure of date. Active Medications Aspirin (Asa -) 81 mg PO DAILY [facility] Last Admin: 05/31/18 10:36 Dose: 81 mg Atenolol (Tenormin -) 100 mg PO DAILY [facility] Last Admin: 05/31/18 10:38 Dose: 100 mg Atorvastatin Calcium (Lipitor -) 80 mg PO [facility] Last Admin: 05/31/18 21:15 Dose: 80 mg Donepezil HCl (Aricept -) 5 mg PO DAILY [facility] Last Admin: 05/31/18 10:36 Dose: 5 mg Olanzapine (Zyprexa -) 5 mg PO HS [facility] Last Admin: 05/31/18 21:15 Dose: 5 mg Polyethylene Glycol (Miralax (For Daily Use) -) 17 gm PO DAILY [facility] Last Admin: 05/31/18 10:37 Dose: 17 gm *Physical Exam Vital Signs Period Temp Pulse Resp BP Sys/Tatum Pulse Ox Last 24 Hr 97.5 F-98.7 F 73-92 18-20 105-138/47-69 95 Gen: Awake, alert, responds to questions, knows place Card: RRR, nml S1,S2 Resp: Normal symmetric effort, lungs clear to auscultation Abdomen: Soft, nontender, bowel sounds active Musculoskeletal: Adequate range of motion without significant deformity Head atraumatic and normocephalic CN: PERRL, EOMI intact, no apparent facial droop, no abnormalities in facial sensation, palate elevates, uvula and tongue midline Motor: Full strength to confrontation in upper and lower extermities proximally and distally. Age related atrophy Sensory: Intact to Temperature, light touch, and pinprick in all extremities Coordination: Intact on [id number] testing Gait: Deferred CBCD WBC 10.4 K/mm3 (4.0-10.0) H 05/31/18 08:58 RBC 3.64 M/mm3 (4.00-5.60) L 05/31/18 08:58 Hgb 12.0 GM/dL (11.7-16.9) 05/31/18 08:58 Hct 35.5 % (35.4-49) 05/31/18 08:58 MCV 97.3 fl (80-96) H 05/31/18 08:58 MCHC 33.8 g/dl (32.0-35.9) 05/31/18 08:58 RDW 13.6 % (11.9-15.9) 05/31/18 08:58 Plt Count 215 K/MM3 (134-434) 05/31/18 08:58 MPV 8.6 fl (7.5-11.1) 05/31/18 08:58 CMP Sodium 139 mmol/L (136-145) 06/01/18 06:20 Potassium 4.9 mmol/L (3.5-5.1) 06/01/18 06:20 Chloride 104 mmol/L (98-107) 06/01/18 06:20 Carbon Dioxide 31 mmol/L (21-32) 10/02/18 06:20 Anion Gap 4 MMOL/L (8-16) L 06/01/18 06:20 BUN 33 mg/dL (7-18) H 06/01/18 06:20 Creatinine 1.2 mg/dL (0.55-1.3) 06/01/18 06:20 Creat Clearance w eGFR 57.01 (>60) 06/01/18 06:20 Random Glucose 101 mg/dL (74-106) 06/01/18 06:20 Calcium 8.5 mg/dL (8.5-10.1) 06/01/18 06:20 Total Bilirubin 0.5 mg/dL (0.2-1) 05/31/18 08:58 AST 22 U/L (15-37) 05/31/18 08:58 ALT 25 U/L (13-61) 05/31/18 08:58 Alkaline Phosphatase 79 U/L (45-117) 05/31/18 08:58 Total Protein 5.6 g/dl (6.4-8.2) L 05/31/18 08:58 Albumin 2.5 g/dl (3.4-5.0) L 05/31/18 08:58 CARDIAC ENZYMES Creatine Kinase 103 IU/L (26-308) 05/26/18 21:45 Troponin I < 0.02 ng/ml (0.00-0.05) 05/26/18 21:45 Medical Decision Making 88 y/o male with a history of HTN, HLD, CVA, CAD s/p IN s/p CABG and bilateral carotid endarterectomy presents to the ED due to recurrent falls, who presents to the ER via EMS due to chest pain. CP began at 8 Am on morning of admission, described as sharp, pressure, radiating to left arm, no associated jaw pain but has improved. I was consulted regarding confusion. During my evaluation, is awake, alert, cooperative, knows he's in the hospital and calls it [facility]. Knows name of President but had difficulty with date, believed it to be October 2016. Completed CT head which did not show any acute abnormalities. Discussed with primary, Dr. Roldan, not seen in his office in a few years. Baseline is some mild cognitive impairment but reportedly with progressive cogitive decline. Has been started on Zyprexa by Psych. Ct head, C spine, MRI brain as above. On Aricept 5mg and appears to have stabilized, started to prevent further decline. Maintain adequate hydration and PO intake. 1:1 at bedside, fall precautions discussed. Psych follow up if behavorial disturbance. Remains neurologically stable. Outpatient follow up for re-evaluation and possible formal memory testing.
--- NOTE | 2018-06-01 10:01 | PN ---
Progress Note, Physician History of Present Illness: Pt w/o SOB, CP, palpitations, abd pain, nausea, diarrhea. - Current Medication List Current Medications: Active Medications Aspirin (Asa -) 81 mg PO DAILY [facility] Last Admin: 05/31/18 10:36 Dose: 81 mg Atenolol (Tenormin -) 100 mg PO DAILY [facility] Last Admin: 05/31/18 10:38 Dose: 100 mg Atorvastatin Calcium (Lipitor -) 80 mg PO HS [facility] Last Admin: 05/31/18 21:15 Dose: 80 mg Donepezil HCl (Aricept -) 5 mg PO DAILY [facility] Last Admin: 05/31/18 10:36 Dose: 5 mg Olanzapine (Zyprexa -) 5 mg PO HS [facility] Last Admin: 05/31/18 21:15 Dose: 5 mg Polyethylene Glycol (Miralax (For Daily Use) -) 17 gm PO DAILY [facility] Last Admin: 05/31/18 10:37 Dose: 17 gm - Objective Vital Signs: Vital Signs Temperature 98.4 F 06/01/18 06:00 Pulse Rate 73 06/01/18 06:00 Respiratory Rate 20 06/01/18 06:00 Blood Pressure 120/61 06/01/18 06:00 O2 Sat by Pulse Oximetry (%) 95 05/31/18 21:00 Constitutional: Yes: No Distress, Calm Cardiovascular: Yes: Regular Rate and Rhythm, S1, S2 Respiratory: Yes: Regular, CTA Bilaterally. No: Rales Gastrointestinal: Yes: Normal Bowel Sounds, Soft. No: Tenderness Edema: No Neurological: Yes: Alert, Oriented (to place, person, activities) Labs: CBC, BMP 05/31/18 08:58 06/01/18 06:20 INR, PTT INR 1.08 (0.83-1.09) 05/24/18 09:50 Problem List - Problems (1) Chest pain Code(s): R07.9 - CHEST PAIN, UNSPECIFIED Qualifiers: Chest pain type: unspecified Qualified Code(s): R07.9 - Chest pain, unspecified (2) Diarrhea Code(s): R19.7 - DIARRHEA, UNSPECIFIED Qualifiers: Diarrhea type: unspecified type Qualified Code(s): R19.7 - Diarrhea, unspecified (3) Coronary artery disease Code(s): I25.10 - ATHSCL HEART DISEASE OF [place] CORONARY ARTERY W/O ANG PCTRS Qualifiers: Coronary Disease-Associated Artery/Lesion type: [place] artery [place] vs. transplanted heart: [place] heart Associated angina: without angina Qualified Code(s): I25.10 - Atherosclerotic heart disease of [place] coronary artery without angina pectoris (4) S/P CABG (coronary artery bypass graft) Code(s): Z95.1 - PRESENCE OF AORTOCORONARY BYPASS GRAFT (5) Diastolic dysfunction without heart failure Code(s): I51.89 - OTHER ILL-DEFINED HEART DISEASES (6) Hyperlipidemia Code(s): E78.5 - HYPERLIPIDEMIA, UNSPECIFIED Qualifiers: Hyperlipidemia type: pure hypercholesterolemia Qualified Code(s): E78.00 - Pure hypercholesterolemia, unspecified; E78.0 - Pure hypercholesterolemia (7) Shingles Code(s): B02.9 - [place] WITHOUT COMPLICATIONS (8) Weakness generalized Code(s): R53.1 - WEAKNESS (9) Leukocytosis Code(s): D72.829 - ELEVATED WHITE BLOOD CELL COUNT, UNSPECIFIED (10) Anxiety Code(s): F41.9 - ANXIETY DISORDER, UNSPECIFIED (11) Confusion Code(s): R41.0 - DISORIENTATION, UNSPECIFIED (12) Swallowing difficulty Code(s): R13.10 - DYSPHAGIA, UNSPECIFIED (13) Fall Code(s): W19.XXXA - UNSPECIFIED FALL, INITIAL ENCOUNTER (14) Head trauma Code(s): S09.90XA - UNSPECIFIED INJURY OF HEAD, INITIAL ENCOUNTER Assessment/Plan 1:1 observation was DC'ed yesterday by Dr. Brooke; no new event were noticed. PT reevaluate pt. 05/24/2018 pt was admitted to monitor bed; later pt was transferred to medical floor Serial CE- to monitor Cardio, GI, Neuro, Swallow, Psychiatry Consults are appreciated. DC planning -pt's aware of our plan to DC pt today; she wanted to take pt home with [facility] [employer]. I spoke with SW today to contact his and decide is pt should go to Rehab vs Home
[2018-06-01] MEDS: DONEPEZIL HCL 5 MG TABLET (FP) PO SCH (10:21)
[2018-06-01] MEDS: ATENOLOL 50 MG TABLET (FP) PO SCH (10:21)
[2018-06-01] MEDS: ASPIRIN 81 MG CHEWABLE TABLETS PO SCH (10:21)
[2018-06-01] MEDS: POLYETHYLENE GLYCOL 3350 119 GM BTL PO SCH (10:21)
--- NOTE | 2018-06-01 14:33 | DS ---
Physical Examination Vital Signs: Vital Signs Temperature 98.8 F 06/01/18 10:00 Pulse Rate 76 06/01/18 10:00 Respiratory Rate 20 06/01/18 10:00 Blood Pressure 117/65 06/01/18 10:00 O2 Sat by Pulse Oximetry (%) 94 L 06/01/18 09:00 Findings/Remarks: See TODAY progress note for ROS, PE Labs: CBC, BMP 05/31/18 08:58 06/01/18 06:20 Discharge Summary Reason For Visit: DIARRHEA, CHEST PAIN Current Active Problems Anxiety (Acute) Atypical chest pain (Acute) Chest pain (Acute) Confusion (Acute) Constipation (Acute) Coronary artery disease (Acute) Dementia (Acute) Diarrhea (Acute) Diastolic dysfunction without heart failure (Acute) Diverticulosis (Acute) Fall (Acute) GERD (gastroesophageal reflux disease) (Acute) Head trauma (Acute) History of adenomatous polyp of colon (Acute) History of coronary artery stent placement (Acute) History of peptic ulcer (Acute) Hyperkalemia (Acute) Hyperlipidemia (Acute) Hypertensive cardiomyopathy (Acute) Hypoalbuminemia (Acute) Leukocytosis (Acute) Odynophagia (Acute) Physical deconditioning (Acute) S/P CABG (coronary artery bypass graft) (Acute) Swallowing difficulty (Acute) Hospital Course: Pt came to ER c/o CP, diarrhea, confusion. Pt was admitted to Telemetry, was seen by cardio (Dr. Jones), had negative CE and telemetry monitoring. Pt had Head CT scan (negative for acute event) for confusion evaluation; pt was seen by Neurology (Dr. Zhou). Pt was ordered Brain MRI (negativre for CVA, mass) for further evaluation of confusion. Pt fell while in radiology department, subsequent head CT scan was negative fro bleed. Pt was also agitated, required 1 :1 observation and vest restrain (to prevent self injury; pt was seen in consult by Psychiatry (Dr. Brooke). Pt was seen by GI (Dr. Mckeon), considered to have paradoxical diarrhea. Pt was noticed to have high potasium, required Kayaxalate and IVF. Pt improved slowly. Pt to be [place] home (pt and his are refusing Rehab). Condition: Stable - Instructions Diet, Activity, Other Instructions: Low salt, Low Cholesterol Referrals: Francisco Roldan MD [Primary Care Provider] - (next week; to f/u with CBC, BMP) Richardson Jones MD [Staff Physician] - (1-2 weeks) Disposition: HOME - Home Medications Comprehensive Discharge Medication List: Ambulatory Orders Atenolol [Tenormin -] 100 mg PO DAILY 08/24/14 Atorvastatin Ca [Lipitor] 80 mg PO HS 08/24/14 Ranitidine HCl [Zantac] 150 mg PO BID 08/24/14 Acetaminophen [Tylenol .Regular Strength -] 650 mg PO Q6H PRN #30 tablet Aspirin [ASA -] 81 mg PO DAILY tab.chew 11/20/14 Donepezil HCl [Aricept -] 5 mg PO DAILY #90 tablet MDD 1 06/01/18
[2018-06-01 14:56] VITALS: BP 102/58; PULSE 70; TEMP 99
== END 2018-06-01 17:18 | disposition home or self-care (01) | DRG 884 ==
LOC: JER 08:43 → JERBED 11:22 → J4W 05-25 04:28 → JSAMEDAYSX 05-28 17:00 → J5S 05-28 18:30
PROVIDERS: ADMIT Specialist; ATTEND Specialist
DX: F03.90 Unspecified dementia, unspecified severity, without behavioral disturbance, psychotic disturbance, mood disturbance, and anxiety (principal); I42.8 Other cardiomyopathies; E44.0 Moderate protein-calorie malnutrition; Z68.1 Body mass index [BMI] 19.9 or less, adult; I13.0 Hypertensive heart and chronic kidney disease with heart failure and stage 1 through stage 4 chronic kidney disease, or unspecified chronic kidney disease; R07.89 Other chest pain; R19.7 Diarrhea, unspecified; N18.9 Chronic kidney disease, unspecified; I25.10 Atherosclerotic heart disease of native coronary artery without angina pectoris; E78.5 Hyperlipidemia, unspecified; I25.2 Old myocardial infarction; F41.9 Anxiety disorder, unspecified; R13.10 Dysphagia, unspecified; D72.829 Elevated white blood cell count, unspecified; R41.0 Disorientation, unspecified; R53.1 Weakness; K57.90 Diverticulosis of intestine, part unspecified, without perforation or abscess without bleeding; K21.9 Gastro-esophageal reflux disease without esophagitis; E87.5 Hyperkalemia; K59.00 Constipation, unspecified; Z89.022 Acquired absence of left finger(s); Z86.73 Personal history of transient ischemic attack (TIA), and cerebral infarction without residual deficits; Z86.010 Personal history of colon polyps; Z95.5 Presence of coronary angioplasty implant and graft; Z95.1 Presence of aortocoronary bypass graft; Z87.11 Personal history of peptic ulcer disease
CPT/HCPCS: 36415; 70450-TC; 70551-TC; 71045-TC-FY; 71046-TC-FY; 72125-TC; 74019-TC-FY; 74230-TC-FY; 80048; 80053; 81003; 82550; 82553; 82607; 82746; 83690; 83735; 83880; 84439; 84443; 84484; 85025; 85027; 85610; 86038; 86140; 87045; 87046; 87086; 87205; 87324; 87449; 92611-GN; 93005; 93010; 97116-GP; 97161-GP; 99285-25; J0131; J7030